=== PATIENT | female | born 1970 | race Caucasian/White ===

== ENCOUNTER 2019-09-05 14:37 | Emergency (ER) | payer SELFPAY ==
[~2019-09-05] VITALS: Ht 160 cm; Wt 105.0 kg
[~2019-09-05 14:37] MED LIST: ALBU17AE3 IH; AMIT150T3 PO; AMIT25TA9 PO; AMIT50TA3 PO; AMLO10TA82 PO; AMOX500C2 PO; ARIP15TA PO; B12 SC; BPR75T PO; CIPR500T78 PO; CLON0.5T2 PO; CLON0.5T3 PO; CLON1PAT TD; CYAN100053 IJ; CYCL10TA9 PO; D50KC PO; DESV100T PO; DEXL60CA5 PO; DICL75TA2; DICY20TA57 PO; DIVA500T7 PO; ERGO400C PO; ESCI20TA2; ESCI20TA38 PO; ESCT10T PO; ESZO1TAB2 PO; ESZO3TAB3 PO; FLT11013 IH; FLUO20CA25 PO; FLVX50T PO; FLX10C; GBPN100C; HYDR-1231 PO; HYDR-34 PO; HYDR1TAB PO; HYDR1TAB3 PO; HYDR50TA76 PO; ILOP6TAB PO; INDM25C PO; INDO25CA PO; LEVO500T69 PO; LISI1TAB10 PO; LISI20TA PO; LORA10TA7 PO; MECL-124 PO; MESA400C PO; METO-272 PO; METO100T5 PO; METO200T2 PO; METO5TAB79 PO; METR500T PO; MIRT15TA6 PO; Meclizine Hcl PO; NITR-65 PO; NITR100C3 PO; NITR50CA PO; OMEP20CA12 PO; OXYC-199 PO; OXYC5SOL PO; PENI500T PO; PNT40TEC PO; PRED20TA PO; PRISTIQ PO; PRM25T PO; QTP25T PO; RIZA10TA24 PO; SCP1.5TD TOP; SCR1T1 PO; SIMV10TA3 PO; SMTR50T PO; SUMA50TA2 PO; TOPI200T19 PO; TOPI200T2 PO; TPR100T; TPR100T PO; TRAM-21 PO; TRAM50TA2 PO; TRM50T PO; VORT10TA PO; ZALE10CA PO; ZLP10T
[2019-09-05 15:26] LABS: BASOPHILS % (AUTO) 0 % (0-10); EOSINOPHILS # (AUTO) 0.1 10^3/uL (0.0-0.3); EOSINOPHILS % (AUTO) 2 % (0-10); HEMATOCRIT 41 % (35-52); HEMOGLOBIN 12.9 G/DL (11.5-16.0); LYMPHOCYTES # (AUTO) 1.6 X 10^3 (1.0-4.0); LYMPHOCYTES % (AUTO) 20 % (12-44); MEAN CORPUSCULAR HEMOGLOBIN 26 PG (25-34); MEAN CORPUSCULAR HGB CONC 32 G/DL (32-36); MEAN CORPUSCULAR VOLUME 82 FL (80-99); MEAN PLATELET VOLUME 11.2 FL (7.4-10.4); MONOCYTES # (AUTO) 0.7 X 10^3 (0.0-1.0); MONOCYTES % (AUTO) 8 % (0-12); NEUTROPHILS # (AUTO) 5.8 X 10^3 (1.8-7.8); NEUTROPHILS % (AUTO) 70 % (42-75); PLATELET COUNT 283 10^3/uL (130-400); RED CELL DISTRIBUTION WIDTH 14.2 % (10.0-14.5); WHITE BLOOD COUNT 8.3 10^3/uL (4.3-11.0)
[2019-09-05 15:30] LABS: PROTHROMBIN TIME PATIENT 13.7 SEC (12.2-14.7)
[2019-09-05] MEDS ORDERED: cloNIDine 0.2 MG (CATAPRES) TAB PO ONE (15:30)
[2019-09-05 15:39] LABS: ALANINE AMINOTRANSFERASE 14 U/L (0-55); ALBUMIN 4.1 GM/DL (3.2-4.5); ALKALINE PHOSPHATASE 57 U/L (40-136); BILIRUBIN,TOTAL 0.4 MG/DL (0.1-1.0); BUN/CREATININE RATIO 13; CALCIUM 9.1 MG/DL (8.5-10.1); CARBON DIOXIDE 20 MMOL/L (21-32); CHLORIDE 107 MMOL/L (98-107); CREATININE SERUM 0.79 MG/DL (0.60-1.30); GFR ESTIMATED > 60; GLUCOSE 119 MG/DL (70-105); MAGNESIUM 1.9 MG/DL (1.6-2.4); SODIUM 141 MMOL/L (135-145); TOTAL PROTEIN 7.9 GM/DL (6.4-8.2)
[2019-09-05] MEDS ORDERED: morphine INJ 10 MG/ML 1ML (SYR OR VIAL) IVP STA (15:45)
--- NOTE | 2019-09-05 15:47 | Diagnostic Imaging Report ---
EXAMINATION: Chest (PA and lateral). CLINICAL INDICATION: 49-year-old female, chest pain, shortness of breath. Productive cough. COMPARISON: May 19, 2014. FINDINGS: Stable overall appearance of the cardiomediastinal silhouette. There is no identified pneumothorax. There is no pleural effusion. There is no identified focal airspace consolidation. IMPRESSION: No identified acute cardiopulmonary abnormality. Dictated by: Dictated on workstation # [id number]
--- NOTE | 2019-09-05 15:51 | ED Cardiac General ---
History of Present Illness General Chief Complaint: Respiratory Problems Stated Complaint: SOA / CHEST PAIN Nursing Triage Note: PT TO ED FROM [facility] FOR C/O SOB ET CP ONSET YESTERDAY, WORSE TODAY. ALSO C/O ELEVATED BP. History of Present Illness Date Seen by Provider: Sep 05, 2019 Time Seen by Provider: 14:45 Initial Comments 49-year-old female presents for sternal chest pain that has been present for approximately 24 hours. She reports her symptoms are worse. 4 yesterday. She's also been having shortness of air, no cough. She was seen at [facility] earlier today, given ASA 324 mg and referred here. He is on 3 different blood pressure medications and a diuretic but takes them all at 1700 daily. She is compliant in taking them daily. Timing/Duration: 24 hours, getting worse Severity: moderate Location: substernal Prior CP/Workup: no prior chest pain NTG SL PROFESSOR OF JOURNALISM: No ASA po PROFESSOR OF JOURNALISM: Yes Associated Systoms: Chest Pain; No Cough, No Diaphoresis, No Fever/Chills, No Headaches, No Loss of Appetite, No Malaise, No Nausea/Vomiting, No Rash, No Seizure; Shortness of Air; No Syncope, No Weakness Allergies and Home Medications Allergies Coded Allergies: No Known Drug Allergies (Verified , 09/02/07) Home Medications Amitriptyline Hcl 25 Mg Tab, 25 MG PO HS, (Reported) Amlodipine Besylate 10 Mg Tablet, 10 MG PO DAILY, (Reported) Clonidine 1 Each Patch.tdwk, 1 PATCH TD WEEKLY ON SATURDAY, (Reported) Cyanocobalamin 1,000 Mcg/Ml Vial, 1,000 MCG IJ MONTHLY ON THE , (Reported) Cyclobenzaprine Hcl 10 Mg Tablet, 1 EACH PO Q8H PRN for SPASMS Prescribed by: ADY STERLING on 02/13/15 1631 Divalproex Sodium 500 Mg Tablet.dr, 1,000 MG PO HS, (Reported) Hctz/Lisinopril 1 Tab Tablet, 1 TAB PO DAILY, (Reported) Hydroxyzine Hcl 50 Mg Tablet, 50 MG PO TID, (Reported) Mesalamine 400 Mg Capsule.dr, 800 MG PO TID, (Reported) Pantoprazole Sodium 40 Mg Tablet.dr, 40 MG PO BID, (Reported) Tramadol Hcl 50 Mg Tablet, 50 MG PO Q4H PRN for PAIN Prescribed by: ADY STERLING on 02/13/15 1631 Patient Home Medication List Home Medication List Reviewed: Yes Review of Systems Review of Systems Constitutional: no symptoms reported, see HPI Respiratory: See HPI, Shortness of Air, SOA With Exertion Cardiovascular: See HPI, Chest Pain All Other Systems Reviewed Negative Unless Noted: Yes Past Rtfaiqo-Rfcjtf-Qxfxwf Hx Past Med/Social Hx: Reviewed Nursing Past Med/Soc Hx Patient Social History Alcohol Use: Occasionally Uses Recreational Drug Use: No Smoking Status: Never a Smoker Recent Foreign Travel: No Contact w/Someone Who Travel: No Recent Infectious Disease Expo: No Recent Hopitalizations: Yes (FX BONES,CHILD ,PNEUMONIA) Physical Abuse: No Sexual Abuse: No Mistreated: No Fear: No Immunizations Up To Date Tetanus Booster (TDap): More than 5yrs Date of Pneumonia Vaccine: Nov 21, 2013 Date of Influenza Vaccine: Jul 24, 2013 Seasonal Allergies Seasonal Allergies: Yes Past Medical History Surgeries: Yes (HIATAL HERNIA REPAIR, DENTAL SX, KNEE, ANKLE) Abdominal, Orthopedic, Tonsillectomy, Tubal Ligation Respiratory: Yes COPD Cardiac: Yes Hypertension Neurological: Yes Headaches /Migraines, Multiple Sclerosis 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 Disorders: No 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 Sexually Transmitted Disease: No HIV/AIDS: No UTI-Chronic Gastrointestinal: Yes Colitis, Gastroesophageal Reflux, Crohns Disease Musculoskeletal: Yes (MULTIPLE FX, MS ) Fractures Endocrine: No Diabetes, Non-Insulin dep Cancer: No Psychosocial: Yes Anxiety, Depression Integumentary: No Blood Disorders: No Adverse Reaction/Blood Tranf: No Family Medical History Family history: Cardiovascular disease 03 FATHER GRANDPARENTS Family history: Diabetes mellitus GRANDPARENTS Heart disease 03 FATHER GRANDPARENTS Cancer, CAD Under 55 Years Old, Diabetes, Hypertension, Seizures Physical Exam Vital Signs Vital Signs - First Documented 09/05/19 14:41 Temp 36.6 Pulse 83 Resp 20 B/P (MAP) 189/123 (145) Pulse Ox 96 O2 Delivery Room Air Capillary Refill : Less Than 3 Seconds Height, Weight, BMI Height: 5'3" Weight: 240lbs. 0.0oz. [id number]; 41.00 BMI Method:Stated General Appearance: No Apparent Distress, Mild Distress HEENT: PERRL/EOMI, TMs Normal, Normal ENT Inspection, Pharynx Normal Neck: Full Range of Motion, Normal Inspection, Non Tender, Supple Respiratory: Lungs Clear, Normal Breath Sounds Cardiovascular: Regular Rate, Rhythm, No Edema, No JVD, No Murmur, Normal Peripheral Pulses Gastrointestinal: Normal Bowel Sounds, Non Tender, Soft Extremity: Normal Capillary Refill, Normal Inspection, Normal Range of Motion, No Pedal Edema Neurologic/Psychiatric: Alert, Oriented x3, No Motor/Sensory Deficits, Normal Mood/Affect Skin: Normal Color, Warm/Dry Progress/Results/Core Measures Results/Orders Lab Results Laboratory Tests Test 09/05/19 15:00 Range/Units White Blood Count 8.3 4.3-11.0 10^3/uL Red Blood Count 4.98 4.35-5.85 10^6/uL Hemoglobin 12.9 11.5-16.0 G/DL Hematocrit 41 35-52 % Mean Corpuscular Volume 82 80-99 FL Mean Corpuscular Hemoglobin 26 25-34 PG Mean Corpuscular Hemoglobin Concent 32 32-36 G/DL Red Cell Distribution Width 14.2 10.0-14.5 % Platelet Count 283 130-400 10^3/uL Mean Platelet Volume 11.2 H 7.4-10.4 FL Neutrophils (%) (Auto) 70 42-75 % Lymphocytes (%) (Auto) 20 12-44 % Monocytes (%) (Auto) 8 0-12 % Eosinophils (%) (Auto) 2 0-10 % Basophils (%) (Auto) 0 0-10 % Neutrophils # (Auto) 5.8 1.8-7.8 X 10^3 Lymphocytes # (Auto) 1.6 1.0-4.0 X 10^3 Monocytes # (Auto) 0.7 0.0-1.0 X 10^3 Eosinophils # (Auto) 0.1 0.0-0.3 10^3/uL Basophils # (Auto) 0.0 0.0-0.1 10^3/uL Prothrombin Time 13.7 12.2-14.7 SEC INR Comment 1.0 0.8-1.4 Activated Partial Thromboplast Time 28 24-35 SEC D-Dimer 0.32 0.00-0.49 UG/ML Sodium Level 141 135-145 MMOL/L Potassium Level 4.0 3.6-5.0 MMOL/L Chloride Level 107 98-107 MMOL/L Carbon Dioxide Level 20 L 21-32 MMOL/L Anion Gap 14 5-14 MMOL/L Blood Urea Nitrogen 10 7-18 MG/DL Creatinine 0.79 0.60-1.30 MG/DL Estimat Glomerular Filtration Rate > 60 BUN/Creatinine Ratio 13 Glucose Level 119 H 70-105 MG/DL Calcium Level 9.1 8.5-10.1 MG/DL Corrected Calcium 9.0 8.5-10.1 MG/DL Magnesium Level 1.9 1.6-2.4 MG/DL Total Bilirubin 0.4 0.1-1.0 MG/DL Aspartate Amino Transf (AST/SGOT) 16 5-34 U/L Alanine Aminotransferase (ALT/SGPT) 14 0-55 U/L Alkaline Phosphatase 57 40-136 U/L Myoglobin 21.5 10.0-92.0 NG/ML Troponin I < 0.028 <0.028 NG/ML B-Type Natriuretic Peptide 38.3 <100.0 PG/ML Total Protein 7.9 6.4-8.2 GM/DL Albumin 4.1 3.2-4.5 GM/DL TSH [place] Testing 0.83 0.35-4.94 UIU/ML My Orders Orders - AMIE LUCERO GEOLOGICAL ENGINEER Cbc With Automated Diff (09/05/19 15:19) Magnesium (09/05/19 15:19) Ekg Tracing (09/05/19 15:19) Comprehensive Metabolic Panel (09/05/19 15:19) Myoglobin Serum (09/05/19 15:19) Protime With Inr (09/05/19 15:19) Partial Thromboplastin Time (09/05/19 15:19) O2 (09/05/19 15:19) Monitor-Rhythm Ecg Trace Only (09/05/19 15:19) Ed Iv/Invasive Line Start (09/05/19 15:19) BNP (09/05/19 15:19) Chest Pa/Lat (2 View) (09/05/19 15:19) Clonidine Tablet (Catapres Tablet) (09/05/19 15:30) Troponin I (09/05/19 15:00) Fibrin Degradation Products (09/05/19 15:24) Morphine Injection (Morphine Injection (09/05/19 15:45) Thyroid Analyzer (09/05/19 16:25) Hydralazine Injection (Apresoline Inject (09/05/19 16:45) Medications Given in ED Current Medications Medications Dose Ordered Sig/Laz Route Start Time Stop Time Status Last Admin Dose Admin Clonidine HCl 0.2 mg ONCE ONCE PO 09/05/19 15:30 09/05/19 15:31 DC 09/05/19 15:42 0.2 MG Hydralazine HCl 10 mg ONCE ONCE IV 09/05/19 16:45 09/05/19 16:47 DC 09/05/19 16:50 10 MG Vital Signs/I&O 09/05/19 09/05/19 14:41 17:32 Temp 36.6 Pulse 83 71 Resp 20 24 B/P (MAP) 189/123 (145) 184/91 Pulse Ox 96 96 O2 Delivery Room Air Room Air Blood Pressure Mean: 145 POS Progress Progress Note : Time: 14:45 Progress Note Patient seen and evaluated, will obtain EKG, chest x-ray, and labs. Morphine 2 mg IV for pain and clonidine 0.2 mg for hypertension 189/123. 1530 Blood pressure improved to 160/90. Patient reports some improvement in her pain. SaO2 on room air continues to be 92-94%, oxygen 1 L per nasal cannula applied. SaO2 98% after 1-2 minutes. 1545 Labs all normal, patient reports to be feeling better with O2 on. 1615 B/P 180s/110, will give Hydralazine 10 mg IV. 1640 B/P 150/84. Discontinued O2, will monitor. 1715 Patient reports no further pain or dyspnea. Discharge instructions and return precautions reviewed with the patient. All questions answered. Initial ECG Impression Date: Sep 05, 2019 Initial ECG Impression Time: 15:12 Initial ECG Rate: 68 Initial ECG Rhythm: Normal Sinus Initial ECG Intervals: Normal Initial ECG Intervals GA 148, QRSD 72, QTC 400, QTC 426. Stephenson P 15, QRS 3, T 43. Initial ECG Impression: Normal Initial ECG Comparisson: Unchanged Comment Reviewed with Dr. Weiss, concurred with interpretation. Diagnostic Imaging Diagonstic Imaging: Xray Plain Films/CT/US/NM/MRI: chest Comments NAME: APOLONIA [facility] REC#: [id number] PT STATUS: REG ER : 1970 PHYSICIAN: AMIE LUCERO ADMIT DATE: 09/05/19/ER Draft POSDate of Exam:09/05/19 CHEST PA/LAT (2 VIEW) EXAMINATION: Chest (PA and lateral). CLINICAL INDICATION: 49-year-old female, chest pain, shortness of breath. Productive cough. COMPARISON: May 19, 2014. FINDINGS: Stable overall appearance of the cardiomediastinal silhouette. There is no identified pneumothorax. There is no pleural effusion. There is no identified focal airspace consolidation. IMPRESSION: No identified acute cardiopulmonary abnormality. Dictated on workstation # [id number] Dict: 09/05/19 1536 Trans: 09/05/19 1546 [facility] [id number] Interpreted by: CARA FLORES MD Electronically signed by: Departure Impression Primary Impression: HTN (hypertension) Qualified Codes: I10 - Essential (primary) hypertension Disposition: 01 HOME, SELF-CARE Condition: Improved Departure-Patient Inst. Decision time for Depature: 17:15 Referrals: [facility] [place]) Primary Care Physician Patient Instructions: High Blood Pressure (DC) Add. Discharge Instructions: Continue to take your medication as prescribed, start taking her lisinopril/hy drochlorothiazide in the morning. Follow-up with your primary care provider if symptoms are not improving or worsen. Return to the emergency department for new, urgent health care problems. All discharge instructions reviewed with patient and/or family. Voiced understanding. AMIE LUCERO Sep 05, 2019 15:51 POS
[2019-09-05] MEDS ORDERED: hydrALAZINE (APESOLINE) 20 MG/ML VIAL IV ONE (16:45)
[2019-09-05 17:32] VITALS: BP 184/91
== END 2019-09-05 17:36 | disposition home or self-care (01) ==
LOC: EDUNIT# 14:37 → ER 14:38
DX: I10 Essential (primary) hypertension (principal); E11.9 Type 2 diabetes mellitus without complications; J44.9 Chronic obstructive pulmonary disease, unspecified; G43.909 Migraine, unspecified, not intractable, without status migrainosus; G35 Multiple sclerosis; F41.9 Anxiety disorder, unspecified; F32.9 Major depressive disorder, single episode, unspecified; K21.9 Gastro-esophageal reflux disease without esophagitis; Z87.440 Personal history of urinary (tract) infections; Z90.89 Acquired absence of other organs; Z98.51 Tubal ligation status; Z82.49 Family history of ischemic heart disease and other diseases of the circulatory system
CPT/HCPCS: 36415; 71046; 80053; 83735; 83874; 83880; 84443; 84484; 85025; 85379; 85610; 85730; 93005; 96374; 96375

== ENCOUNTER 2019-09-17 13:37 | Emergency (ER) | payer SELFPAY ==
[~2019-09-17] VITALS: Ht 160 cm; Wt 106.8 kg
[2019-09-17] MEDS ORDERED: CARV6.252 PO (14:09)
[2019-09-17] MEDS ORDERED: SERT50TA9 PO (14:10)
[2019-09-17] MEDS ORDERED: cloNIDine 0.1 MG (CATAPRES) TAB PO ONE (14:30)
--- NOTE | 2019-09-17 14:31 | ED Cardiac General ---
History of Present Illness General Chief Complaint: Cardiac/General Problems Stated Complaint: HIGH BLOOD PRESSURE Nursing Triage Note: STATES HER BP HAS BEEN GETTING HIGH THE LAST COUPLE OF WEEKS. HAS BEEN SEEN IN THE ER RECENTLY FOR THIS. COMPLAINS OF A HEADACHE AND NAUSEA. STATES SHE HAS BEEN TAKING HER MEDS LIKE SHE SHOULD. Source: patient Exam Limitations: no limitations History of Present Illness Date Seen by Provider: Sep 17, 2019 Time Seen by Provider: 14:29 Initial Comments Brought to ER by her mother with reports of high blood pressure. She states that she has dealt with high blood pressure since she was 22 years old. She is on 3 medicines for them, one of them is lisinopril but she doesn't know the dosage and she doesn't know the name of the other 2. She has some back pain in her lower back that is chronic but a bit worse today and radiates up her back. She does have a headache and some nausea. She has not missed any doses of blood pressure medication Timing/Duration: changing over time Severity: moderate Activities at Onset: none Prior CP/Workup: no prior chest pain NTG SL ANALYTICS ANALYST: No ASA po ANALYTICS ANALYST: No Associated Systoms: No Chest Pain; Headaches, Nausea/Vomiting Allergies and Home Medications Allergies Coded Allergies: No Known Drug Allergies (Verified , 09/02/07) Home Medications Amlodipine Besylate 10 Mg Tablet, 10 MG PO DAILY, (Reported) Carvedilol 6.25 Mg Tablet, 6.25 MG PO BID, (Reported) Clonidine HCl 0.2 Mg Tablet, 0.2 MG PO BID Prescribed by: TRUDI AGUILAR on 09/17/19 1529 Hctz/Lisinopril 1 Tab Tablet, 1 TAB PO DAILY, (Reported) Hydroxyzine Hcl 50 Mg Tablet, 50 MG PO TID, (Reported) Patient Home Medication List Home Medication List Reviewed: Yes Review of Systems Review of Systems Constitutional: see HPI EENTM: No Symptoms Reported Respiratory: No Symptoms Reported Cardiovascular: See HPI; Denies Chest Pain, Denies Edema, Denies Irregular Heart Rate, Denies Lightheadedness, Denies Palpitations Gastrointestinal: No Symptoms Reported Genitourinary: No Symptoms Reported Musculoskeletal: no symptoms reported Skin: no symptoms reported Psychiatric/Neurological: See HPI, Headache Endocrine: No Symptoms Reported Hematologic/Lymphatic: No Symptoms Reported Past Fjluncb-Eireqy-Uvncvq Hx Patient Social History Alcohol Use: Occasionally Uses Recreational Drug Use: No Smoking Status: Former Smoker Recent Foreign Travel: No Contact w/Someone Who Travel: No Recent Infectious Disease Expo: No Recent Hopitalizations: Yes (FX BONES,CHILD ,PNEUMONIA) Immunizations Up To Date Tetanus Booster (TDap): More than 5yrs Date of Pneumonia Vaccine: Nov 21, 2013 Date of Influenza Vaccine: Jul 24, 2013 Seasonal Allergies Seasonal Allergies: Yes Past Medical History Surgeries: Yes (HIATAL HERNIA REPAIR, DENTAL SX, KNEE, ANKLE) Abdominal, Orthopedic, Tonsillectomy, Tubal Ligation Respiratory: Yes COPD Cardiac: Yes Hypertension Neurological: Yes Headaches /Migraines, Multiple Sclerosis : No Last Menstrual Period: Aug 23, 2019 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 Disorders: No 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 Sexually Transmitted Disease: No HIV/AIDS: No UTI-Chronic Gastrointestinal: Yes Colitis, Gastroesophageal Reflux, Crohns Disease Musculoskeletal: Yes (MULTIPLE FX, MS ) Fractures Endocrine: No Diabetes, Non-Insulin dep Cancer: No Psychosocial: Yes Anxiety, Depression Integumentary: No Blood Disorders: No Adverse Reaction/Blood Tranf: No Family Medical History Family history: Cardiovascular disease 03 FATHER GRANDPARENTS Family history: Diabetes mellitus GRANDPARENTS Heart disease 03 FATHER GRANDPARENTS Cancer, CAD Under 55 Years Old, Diabetes, Hypertension, Seizures Physical Exam Vital Signs Vital Signs - First Documented 09/17/19 14:04 Temp 36.7 Pulse 75 Resp 16 B/P (MAP) 222/124 (156) Pulse Ox 99 O2 Delivery Room Air Capillary Refill : Less Than 3 Seconds Height, Weight, BMI Height: 5'3" Weight: 240lbs. 0.0oz. [id number]; 41.00 BMI Method:Stated General Appearance: No Apparent Distress, WD/WN HEENT: PERRL/EOMI, TMs Normal Neck: Full Range of Motion, Normal Inspection Respiratory: Lungs Clear, Normal Breath Sounds, No Accessory Muscle Use, No Respiratory Distress Cardiovascular: Regular Rate, Rhythm, Normal Peripheral Pulses Gastrointestinal: Normal Bowel Sounds, Non Tender, Soft Extremity: Normal Capillary Refill, Normal Inspection Neurologic/Psychiatric: Alert, Oriented x3 Skin: Normal Color, Warm/Dry Progress/Results/Core Measures Results/Orders Lab Results Laboratory Tests Test 09/17/19 14:20 Range/Units White Blood Count 7.9 4.3-11.0 10^3/uL Red Blood Count 5.02 4.35-5.85 10^6/uL Hemoglobin 13.1 11.5-16.0 G/DL Hematocrit 41 35-52 % Mean Corpuscular Volume 82 80-99 FL Mean Corpuscular Hemoglobin 26 25-34 PG Mean Corpuscular Hemoglobin Concent 32 32-36 G/DL Red Cell Distribution Width 14.2 10.0-14.5 % Platelet Count 248 130-400 10^3/uL Mean Platelet Volume 10.7 H 7.4-10.4 FL Neutrophils (%) (Auto) 68 42-75 % Lymphocytes (%) (Auto) 21 12-44 % Monocytes (%) (Auto) 9 0-12 % Eosinophils (%) (Auto) 1 0-10 % Basophils (%) (Auto) 0 0-10 % Neutrophils # (Auto) 5.4 1.8-7.8 X 10^3 Lymphocytes # (Auto) 1.6 1.0-4.0 X 10^3 Monocytes # (Auto) 0.7 0.0-1.0 X 10^3 Eosinophils # (Auto) 0.1 0.0-0.3 10^3/uL Basophils # (Auto) 0.0 0.0-0.1 10^3/uL Sodium Level 140 135-145 MMOL/L Potassium Level 4.1 3.6-5.0 MMOL/L Chloride Level 104 98-107 MMOL/L Carbon Dioxide Level 26 21-32 MMOL/L Anion Gap 10 5-14 MMOL/L Blood Urea Nitrogen 12 7-18 MG/DL Creatinine 0.77 0.60-1.30 MG/DL Estimat Glomerular Filtration Rate > 60 BUN/Creatinine Ratio 16 Glucose Level 97 70-105 MG/DL Calcium Level 9.9 8.5-10.1 MG/DL Corrected Calcium 9.7 8.5-10.1 MG/DL Total Bilirubin 0.3 0.1-1.0 MG/DL Aspartate Amino Transf (AST/SGOT) 14 5-34 U/L Alanine Aminotransferase (ALT/SGPT) 14 0-55 U/L Alkaline Phosphatase 57 40-136 U/L Troponin I < 0.028 <0.028 NG/ML Total Protein 8.1 6.4-8.2 GM/DL Albumin 4.2 3.2-4.5 GM/DL Thyroid Stimulating Hormone (TSH) 1.05 0.35-4.94 UIU/ML Free Thyroxine 1.04 0.70-1.48 NG/DL Serum Test, Qualitative NEGATIVE NEGATIVE My Orders Orders - TRUDI AGUILAR APRN Cbc With Automated Diff (09/17/19 14:23) Comprehensive Metabolic Panel (09/17/19 14:23) Troponin I (09/17/19 14:23) Clonidine Tablet (Catapres Tablet) (09/17/19 14:30) Chest 1 View, Ap/Pa Only (09/17/19 14:27) Aorta Sono [id number] (09/17/19 14:27) Thyroid Stimulating Hormone (09/17/19 14:28) Free T4 (Free Thyroxine) (09/17/19 14:28) Hcg,Qualitative Serum (09/17/19 14:28) Ct Angio Abdomen/Pelv W (09/17/19 15:36) Ketorolac Injection (Toradol Injection) (09/17/19 15:45) Prochlorperazine Injection (Compazine In (09/17/19 15:45) Diphenhydramine Injection (Benadryl Inje (09/17/19 15:45) Iohexol Injection (Omnipaque 350 Mg/Ml 1 (09/17/19 16:15) Received Contrast (Hold Metformin- Contr (09/17/19 16:15) Ns (Ivpb) (Sodium Chloride 0.9% Ivpb Bag (09/17/19 16:15) Sodium Chloride Flush (Catheter Flush Sy (09/17/19 16:15) Hydralazine Tablet (Apresoline Tablet) (09/17/19 16:30) Medications Given in ED Current Medications Medications Dose Ordered Sig/Laz Route Start Time Stop Time Status Last Admin Dose Admin Clonidine HCl 0.2 mg ONCE ONCE PO 09/17/19 14:30 09/17/19 14:31 DC 09/17/19 14:31 0.2 MG Iohexol 100 ml ONCE ONCE IV 09/17/19 16:15 09/17/19 16:16 DC 09/17/19 16:11 85 ML Sodium Chloride 10 ml NEEDED PRN IV 09/17/19 16:15 09/17/19 16:11 10 ML Sodium Chloride 100 ml ONCE ONCE IV 09/17/19 16:15 09/17/19 16:16 DC 09/17/19 16:11 80 ML Vital Signs/I&O 09/17/19 14:04 Temp 36.7 Pulse 75 Resp 16 B/P (MAP) 222/124 (156) Pulse Ox 99 O2 Delivery Room Air Blood Pressure Mean: 156 Departure Impression Primary Impression: Hypertensive urgency Disposition: 01 HOME, SELF-CARE Condition: Improved Departure-Patient Inst. Decision time for Depature: 15:28 Referrals: [facility] (PCP/Family) Primary Care Physician Patient Instructions: High Blood Pressure in Adults Add. Discharge Instructions: 1. Add new blood pressure medication to your regimen. Take one tablet every 12 h ours as needed IF systolic blood pressure (top number) is over 160. 2. Call your doctor today or tomorrow to make an appointment to be seen no later than next week, it is very important that you follow up on this. All discharge instructions reviewed with patient and/or family. Voiced understanding. Scripts Clonidine HCl (Clonidine HCl) 0.2 Mg Tablet 0.2 MG PO BID, #20 TAB Prov: TRUDI AGUILAR APRN 09/17/19 Copy Copies To 1: HERNAN ANGELES PETER J APRN Sep 17, 2019 14:31
[2019-09-17 14:32] LABS: BASOPHILS % (AUTO) 0 % (0-10); EOSINOPHILS # (AUTO) 0.1 10^3/uL (0.0-0.3); EOSINOPHILS % (AUTO) 1 % (0-10); HEMATOCRIT 41 % (35-52); HEMOGLOBIN 13.1 G/DL (11.5-16.0); LYMPHOCYTES # (AUTO) 1.6 X 10^3 (1.0-4.0); LYMPHOCYTES % (AUTO) 21 % (12-44); MEAN CORPUSCULAR HEMOGLOBIN 26 PG (25-34); MEAN CORPUSCULAR HGB CONC 32 G/DL (32-36); MEAN CORPUSCULAR VOLUME 82 FL (80-99); MEAN PLATELET VOLUME 10.7 FL (7.4-10.4); MONOCYTES # (AUTO) 0.7 X 10^3 (0.0-1.0); MONOCYTES % (AUTO) 9 % (0-12); NEUTROPHILS # (AUTO) 5.4 X 10^3 (1.8-7.8); NEUTROPHILS % (AUTO) 68 % (42-75); PLATELET COUNT 248 10^3/uL (130-400); RED CELL DISTRIBUTION WIDTH 14.2 % (10.0-14.5); WHITE BLOOD COUNT 7.9 10^3/uL (4.3-11.0)
--- NOTE | 2019-09-17 14:49 | Diagnostic Imaging Report ---
INDICATION: High blood pressure. TIME OF EXAM: 02:40 p.m. COMPARISON: Comparison is made with prior chest from 09/05/2019. FINDINGS: The heart size is normal. The pulmonary vascularity is unremarkable. The lungs are clear. No infiltrate, effusion or pneumothorax is detected. IMPRESSION: No acute cardiopulmonary process is detected. Dictated by: Dictated on workstation # [id number]
[2019-09-17 14:50] LABS: CARBON DIOXIDE 26 MMOL/L (21-32); CHLORIDE 104 MMOL/L (98-107); CREATININE SERUM 0.77 MG/DL (0.60-1.30); POTASSIUM 4.1 MMOL/L (3.6-5.0); SODIUM 140 MMOL/L (135-145)
[2019-09-17 14:51] LABS: ALANINE AMINOTRANSFERASE 14 U/L (0-55); ALBUMIN 4.2 GM/DL (3.2-4.5); ALKALINE PHOSPHATASE 57 U/L (40-136); BILIRUBIN,TOTAL 0.3 MG/DL (0.1-1.0); BUN/CREATININE RATIO 16; CALCIUM 9.9 MG/DL (8.5-10.1); GFR ESTIMATED > 60; GLUCOSE 97 MG/DL (70-105); TOTAL PROTEIN 8.1 GM/DL (6.4-8.2)
[2019-09-17] MEDS ORDERED: CLON0.2T PO (15:29)
[2019-09-17 15:33] LABS: FREE T4 (FREE THYROXINE) 1.04 NG/DL (0.70-1.48)
[2019-09-17] MEDS ORDERED: KETOROLAC 30 MG/ML VIAL IVP ONE (15:45)
[2019-09-17] MEDS ORDERED: diphenhydrAMINE 50 MG/ML INJ (BENADRYL) IVP ONE (15:45)
[2019-09-17] MEDS ORDERED: PROCHLORPERAZINE 10 MG/2ML INJ (COMPAZINE) IV ONE (15:45)
--- NOTE | 2019-09-17 15:55 | Diagnostic Imaging Report ---
INDICATION: Elevated blood pressure and back pain. FINDINGS: The proximal aorta measures 2.1 cm AP by 2.2 cm transverse. Mid aorta is 1.6 cm AP by 1.8 cm transverse. The distal abdominal aorta as well as the iliacs could not be visualized due to bowel gas. No free fluid is seen. IMPRESSION: No evidence of aneurysm involving the proximal or mid abdominal aorta. Dictated by: Dictated on workstation # [id number]
[2019-09-17] MEDS ORDERED: HOLD METFORMIN - RECEIVED CONTRAST 20 ML VIAL IV SCH (16:15)
[2019-09-17] MEDS ORDERED: NS 100 ML (IVPB) BAG IV ONE (16:15)
[2019-09-17] MEDS ORDERED: IOHEXOL 350 MG/ML 100 ML (OMNIPAQUE 350) VIAL IV ONE (16:15)
[2019-09-17] MEDS ORDERED: CATHETER FLUSH 10 ML SYR IV PRN (16:15)
--- NOTE | 2019-09-17 16:22 | Diagnostic Imaging Report ---
EXAMINATION: CT angiography of the abdomen and pelvis. TECHNIQUE: After intravenous administration of contrast, thin section axial CT angiography of the abdomen and pelvis were obtained. 3D MIP reformats were provided. All CT scans use one or more of the following dose optimizing techniques: automated exposure control, MA and/or KvP adjustment based on a patient size and exam type, or iterative reconstruction. HISTORY: Elevated blood pressure and back pain. COMPARISON: 12/09/2014. FINDINGS: The abdominal aorta is normal in caliber without aneurysm or dissection. No penetrating atherosclerotic ulcer. Celiac artery and superior mesenteric arteries are patent. Inferior mesenteric artery is normal. Renal artery origins are normal without stenosis. Limited views of the lower thorax are unremarkable. The liver is normal without focal lesion. There is no biliary ductal dilation. Gallbladder is normal. Pancreas is normal. Spleen is normal. Adrenal glands are normal. The kidneys are normal. There is no hydronephrosis. Urinary bladder is normal. There are no dilated loops of large or small bowel. No obstruction or inflammation. No free fluid or air. No abdominal or pelvic lymphadenopathy. There are no suspicious osseous lesions. IMPRESSION: 1. No acute abnormality in the abdomen or pelvis, normal vasculature. Dictated by: Dictated on workstation # [id number]
[2019-09-17 17:06] VITALS: BP 165/91
== END 2019-09-17 17:11 | disposition home or self-care (01) ==
LOC: EDUNIT# 13:37 → ER 13:38
DX: I16.0 Hypertensive urgency (principal); J44.9 Chronic obstructive pulmonary disease, unspecified; I10 Essential (primary) hypertension; E11.9 Type 2 diabetes mellitus without complications; G43.909 Migraine, unspecified, not intractable, without status migrainosus; G35 Multiple sclerosis; K21.9 Gastro-esophageal reflux disease without esophagitis; K50.90 Crohn's disease, unspecified, without complications; F41.9 Anxiety disorder, unspecified; F32.9 Major depressive disorder, single episode, unspecified; Z87.891 Personal history of nicotine dependence; Z98.51 Tubal ligation status; Z90.89 Acquired absence of other organs; Z87.440 Personal history of urinary (tract) infections; Z82.49 Family history of ischemic heart disease and other diseases of the circulatory system
CPT/HCPCS: 36415; 71045; 74174; 76775; 80053; 84439; 84443; 84484; 84703; 85025; 93005; 96374; 96375

== ENCOUNTER 2020-05-29 16:01 | Emergency (ER) | payer SELFPAY ==
[~2020-05-29] VITALS: Ht 160 cm; Wt 111.0 kg
[~2020-05-29 16:01] MED LIST changes: +CARV6.252 PO; +CLON0.2T PO; +SERT50TA9 PO
[2020-05-29] MEDS ORDERED: LACTATED RINGERS 1,000 ML IV ONE (16:46)
[2020-05-29] MEDS ORDERED: ONDANSETRON 4 MG/2 ML (SDV) Z0FRAN ONE (16:50)
[2020-05-29 16:53] LABS: BASOPHILS % (AUTO) 0 % (0-10); EOSINOPHILS % (AUTO) 0 % (0-10); HEMATOCRIT 40 % (35-52); HEMOGLOBIN 12.7 G/DL (11.5-16.0); LYMPHOCYTES # (AUTO) 0.5 X 10^3 (1.0-4.0); LYMPHOCYTES % (AUTO) 7 % (12-44); MEAN CORPUSCULAR HEMOGLOBIN 25 PG (25-34); MEAN CORPUSCULAR HGB CONC 32 G/DL (32-36); MEAN CORPUSCULAR VOLUME 79 FL (80-99); MEAN PLATELET VOLUME 11.2 FL (7.4-10.4); MONOCYTES # (AUTO) 0.7 X 10^3 (0.0-1.0); MONOCYTES % (AUTO) 9 % (0-12); NEUTROPHILS # (AUTO) 6.2 X 10^3 (1.8-7.8); NEUTROPHILS % (AUTO) 83 % (42-75); PLATELET COUNT 200 10^3/uL (130-400); WHITE BLOOD COUNT 7.4 10^3/uL (4.3-11.0)
--- NOTE | 2020-05-29 16:57 | ED Respiratory ---
General Chief Complaint: Fever-Adult/Adol Stated Complaint: HIGH BP 200/100 - SOA Nursing Triage Note: ARRIV[facility] AMB [facility] PT COMPLAINS OF HYPERTENSION, SOA, AND FEVER. Source: patient Exam Limitations: no limitations History of Present Illness Date Seen by Provider: May 29, 2020 Time Seen by Provider: 16:40 Initial Comments The patient arrives to the ER by private conveyance from home with chief complaint of 4 days of shortness of breath, upper chest pain on deep inspiration, cough and now fever today. She has been using occasional Tylenol and ibuprofen for body aches. She has no known sick contacts. She has no diarrhea dysuria but she does have some nausea without vomiting. No history of lung disease. She says her chest pain is the same as it usually is. 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 No history of coronary disease. Allergies and Home Medications Allergies Coded Allergies: No Known Drug Allergies (Verified , 09/02/07) Home Medications Amlodipine Besylate 10 Mg Tablet, 10 MG PO DAILY, (Reported) Carvedilol 6.25 Mg Tablet, 6.25 MG PO BID, (Reported) Clonidine HCl 0.2 Mg Tablet, 0.2 MG PO BID Prescribed by: TRUDI AGUILAR on 09/17/19 1529 Hctz/Lisinopril 1 Tab Tablet, 1 TAB PO DAILY, (Reported) Hydroxyzine Hcl 50 Mg Tablet, 50 MG PO TID, (Reported) Patient Home Medication List Home Medication List Reviewed: Yes Review of Systems Review of Systems Constitutional: chills, fever, malaise EENTM: No ear discharge, No ear pain Respiratory: cough; No phlegm; short of breath Cardiovascular: see HPI, chest pain; No edema, No Hx of Intervention, No palpitations, No syncope, No vascular heart diseas Gastrointestinal: No abdominal pain, No constipation Genitourinary: No discharge, No dysuria : No Musculoskeletal: No back pain, No joint pain All Other Systems Reviewed Negative Unless Noted: Yes Past Rarmpxl-Uwyjej-Pplwpu Hx Patient Social History Alcohol Use: Denies Use Recreational Drug Use: No Smoking Status: Never a Smoker Recent Foreign Travel: No Contact w/Someone Who Travel: No Recent Infectious Disease Expo: No Recent Hopitalizations: Yes (FX BONES,CHILD ,PNEUMONIA) Immunizations Up To Date Tetanus Booster (TDap): More than 5yrs Date of Pneumonia Vaccine: Nov 21, 2013 Date of Influenza Vaccine: Jul 24, 2013 Seasonal Allergies Seasonal Allergies: Yes Past Medical History Surgeries: Yes (HIATAL HERNIA REPAIR, DENTAL SX, KNEE, ANKLE) Abdominal, Orthopedic, Tonsillectomy, Tubal Ligation Respiratory: Yes COPD Cardiac: Yes Hypertension Neurological: Yes Headaches /Migraines, Multiple Sclerosis : No 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 Disorders: No Female 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 Sexually Transmitted Disease: No HIV/AIDS: No UTI-Chronic Gastrointestinal: Yes Colitis, Gastroesophageal Reflux, Crohns Disease Musculoskeletal: Yes (MULTIPLE FX, MS ) Fractures Endocrine: No Diabetes, Non-Insulin dep Cancer: No Psychosocial: Yes Anxiety, Depression Integumentary: No Blood Disorders: No Adverse Reaction/Blood Tranf: No Family Medical History Family history: Cardiovascular disease 03 FATHER GRANDPARENTS Family history: Diabetes mellitus GRANDPARENTS Heart disease 03 FATHER GRANDPARENTS Cancer, CAD Under 55 Years Old, Diabetes, Hypertension, Seizures Physical Exam Vital Signs - First Documented 05/29/20 16:20 Temp 39.1 Pulse 109 Resp 16 B/P (MAP) 179/102 (127) Pulse Ox 94 O2 Delivery Room Air Capillary Refill : Less Than 3 Seconds Height: 5'3" Weight: 240lbs. 0.0oz. 108.207994yh; 43.00 BMI Method:Stated General Appearance: WD/WN, moderate distress Eyes: Bilateral Eye Normal Inspection, Bilateral Eye PERRL, Bilateral Eye EOMI HEENT: PERRL/EOMI, normal ENT inspection, TMs normal, pharynx normal Neck: non-tender, full range of motion, supple, normal inspection Respiratory: lungs clear, normal breath sounds, no respiratory distress, no accessory muscle use Cardiovascular: normal peripheral pulses, regular rate, rhythm, tachycardia (105) Gastrointestinal: normal bowel sounds, non tender, soft Neurologic/Psychiatric: alert, normal mood/affect, oriented x 3 Skin: normal color, warm/dry Focused Exam Lactate Level 05/29/20 16:30: Lactic Acid Level 0.97 Lactic Acid Level Laboratory Tests Test 05/29/20 16:30 Lactic Acid Level 0.97 MMOL/L (0.50-2.00) Progress/Results/Core Measures Suspected Sepsis Recent Fever Within 48 Hours: Yes Infection Criteria Present: Suspected New Infection New/Unexplained Altered Menta: No Sepsis Screen: Possible Severe Sepsis Risk SIRS Temperature: Pulse: 109 Respiratory Rate: 16 Laboratory Tests 05/29/20 16:30: White Blood Count 7.4 Blood Pressure 179 /102 Mean: 127 05/29/20 16:30: Lactic Acid Level 0.97 Laboratory Tests 05/29/20 16:30: Creatinine 0.88, Platelet Count 200, Total Bilirubin 0.7 05/29/20 16:57: INR Comment 1.2 Results/Orders Lab Results Laboratory Tests Test 05/29/20 16:30 05/29/20 16:40 05/29/20 16:57 Range/Units White Blood Count 7.4 4.3-11.0 10^3/uL Red Blood Count 5.02 4.35-5.85 10^6/uL Hemoglobin 12.7 11.5-16.0 G/DL Hematocrit 40 35-52 % Mean Corpuscular Volume 79 L 80-99 FL Mean Corpuscular Hemoglobin 25 25-34 PG Mean Corpuscular Hemoglobin Concent 32 32-36 G/DL Red Cell Distribution Width 15.2 H 10.0-14.5 % Platelet Count 200 130-400 10^3/uL Mean Platelet Volume 11.2 H 7.4-10.4 FL Neutrophils (%) (Auto) 83 H 42-75 % Lymphocytes (%) (Auto) 7 L 12-44 % Monocytes (%) (Auto) 9 0-12 % Eosinophils (%) (Auto) 0 0-10 % Basophils (%) (Auto) 0 0-10 % Neutrophils # (Auto) 6.2 1.8-7.8 X 10^3 Lymphocytes # (Auto) 0.5 L 1.0-4.0 X 10^3 Monocytes # (Auto) 0.7 0.0-1.0 X 10^3 Eosinophils # (Auto) 0.0 0.0-0.3 10^3/uL Basophils # (Auto) 0.0 0.0-0.1 10^3/uL Neutrophils % (Manual) 79 % Lymphocytes % (Manual) 11 % Monocytes % (Manual) 6 % Band Neutrophils 4 % Anisocytosis SLIGHT Microcytosis SLIGHT Erythrocyte Sedimentation Rate 82 H 0-20 MM/HR Sodium Level 134 L 135-145 MMOL/L Potassium Level 3.7 3.6-5.0 MMOL/L Chloride Level 99 98-107 MMOL/L Carbon Dioxide Level 24 21-32 MMOL/L Anion Gap 11 5-14 MMOL/L Blood Urea Nitrogen 11 7-18 MG/DL Creatinine 0.88 0.60-1.30 MG/DL Estimat Glomerular Filtration Rate > 60 BUN/Creatinine Ratio 13 Glucose Level 131 H 70-105 MG/DL Lactic Acid Level 0.97 0.50-2.00 MMOL/L Calcium Level 9.2 8.5-10.1 MG/DL Corrected Calcium 9.3 8.5-10.1 MG/DL Total Bilirubin 0.7 0.1-1.0 MG/DL Aspartate Amino Transf (AST/SGOT) 23 5-34 U/L Alanine Aminotransferase (ALT/SGPT) 20 0-55 U/L Alkaline Phosphatase 64 40-136 U/L Troponin I < 0.028 <0.028 NG/ML C-Reactive Protein High Sensitivity 33.93 H 0.00-0.50 MG/DL Total Protein 8.5 H 6.4-8.2 GM/DL Albumin 3.9 3.2-4.5 GM/DL Procalcitonin 0.79 H <0.10 NG/ML Prothrombin Time 15.3 H 12.2-14.7 SEC INR Comment 1.2 0.8-1.4 Activated Partial Thromboplast Time 31 24-35 SEC My Orders Orders - NELL CARPIO Ed Iv/Invasive Line Start (05/29/20 16:46) Lactated Ringers (Lr 1000 Ml Iv Solution (05/29/20 16:46) Ibuprofen Tablet (Motrin Tablet) (05/29/20 17:00) Cbc With Automated Diff (05/29/20 16:46) Comprehensive Metabolic Panel (05/29/20 16:46) Hs C Reactive Protein (05/29/20 16:46) Procalcitonin (Pct) (05/29/20 16:46) Erythrocyte Sedimentation Rate (05/29/20 16:46) Ondansetron Injection (Zofran Injectio (05/29/20 17:00) Coronavirus Sars-Cov-2 So 2018 (05/29/20 16:55) Ondansetron Injection (Zofran Injectio (05/29/20 16:50) Manual Differential (05/29/20 16:30) Blood Culture (05/29/20 16:57) Sputum Culture (05/29/20 16:57) Protime With Inr (05/29/20 16:57) Partial Thromboplastin Time (05/29/20 16:57) Chest 1 View, Ap/Pa Only (05/29/20 16:57) Ed Iv/Invasive Line Start (05/29/20 16:57) Ed Iv/Invasive Line Start (05/29/20 16:57) Ekg Tracing (05/29/20 16:57) Troponin I (05/29/20 16:57) Vital Signs Adult Sepsis Patie Q15M (05/29/20 16:57) O2 (05/29/20 16:57) Remove Rings In Anticipation O (05/29/20 16:57) Lactic Acid Analyzer (05/29/20 16:57) Medications Given in ED Current Medications Medications Dose Ordered Sig/Laz Route Start Time Stop Time Status Last Admin Dose Admin Ibuprofen 800 mg ONCE ONCE PO 05/29/20 17:00 05/29/20 17:01 DC 05/29/20 16:52 800 MG Lactated Ringer's 1,000 ml @ 0 mls/hr Q0M ONCE IV 05/29/20 16:46 05/29/20 16:47 DC 05/29/20 16:52 1,000 MLS/HR Ondansetron HCl 4 mg ONCE ONCE IVP 05/29/20 17:00 05/29/20 17:01 DC 05/29/20 16:57 4 MG Vital Signs/I&O 05/29/20 16:20 Temp 39.1 Pulse 109 Resp 16 B/P (MAP) 179/102 (127) Pulse Ox 94 O2 Delivery Room Air Capillary Refill : Less Than 3 Seconds Blood Pressure Mean: 127 Progress Note : Time: 17:03 Progress Note Fever and tachycardia with suspected respiratory infection. Plan to give her 30 mL/kg which would be 2 L. We'll hold off on IV antibiotics and swab for COVID 19. Zofran. She does not likely need hospitalization at this time despite being septic if we can make her feel better with some fluids and Motrin. ECG Initial ECG Impression Date: May 29, 2020 Initial ECG Impression Time: 16:57 Initial ECG Rate: 98 Initial ECG Rhythm: Normal Sinus Initial ECG Intervals: Normal Initial ECG Impression: Normal Comment LVH and sinus rhythm without ST elevation or depression. Diagnostic Imaging Diagonstic Imaging: Xray Plain Films/CT/US/NM/MRI: chest Comments [facility]. [place], [place] NAME: APOLONIA ADAMS [facility] REC#: [id number] PT STATUS: REG ER : 1970 PHYSICIAN: NELL CARPIO MD ADMIT DATE: 05/29/20/ER Signed Date of Exam:05/29/20 CHEST 1 VIEW, AP/PA ONLY CHEST 1 VIEW, AP/PA ONLY Indication: Shortness of air Comparison: 09/17/2019 Findings: No focal airspace disease in the visualized lungs. Please note that the posterior lower lobes are poorly evaluated by portable radiography. No pleural effusion or pneumothorax. Normal cardiomediastinal silhouette. Impression: 1. No acute cardiopulmonary process by portable radiography. Dictated by: Dictated on workstation # [id number] Dict: 05/29/201801 Trans: 05/29/201801 [facility] [id number] Interpreted by: NAVJOT DAVIS MD Electronically signed by: NAVJOT DAVIS MD 05/29/201801 Reviewed: Reviewed by Me Departure Impression Primary Impression: Viral pneumonia Additional Impression: Person under investigation for COVID-19 Disposition: 01 HOME, SELF-CARE Condition: Improved Departure-Patient Inst. Decision time for Depature: 18:17 Referrals: [facility] (PCP/Family) Primary Care Physician Patient Instructions: Coronavirus Disease 2019 (COVID-19) (DC) Add. Discharge Instructions: Drink plenty of fluids. Tylenol 1000 mg every 8 hours as necessary for pain. Ibuprofen 800 mg every 8 hours as necessary for pain. Ondansetron one tablet every 6 hours under the tongue as necessary for nausea or vomiting. Return to the ER if you have worsening shortness of breath or other worrisome concerns. All discharge instructions reviewed with patient and/or family. Voiced understanding. Scripts Albuterol Sulfate (PROAIR HFA) 1 Puff Puff 2 PUFF IH Q4H PRN for WHEEZING, #1 EA 0 Refills 1 PUFF = 90 MCG Prov: NELL CARPIO 9/6/20 Ondansetron (Ondansetron Odt) 4 Mg Tab.rapdis 4 MG PO Q6H PRN for NAUSEA/VOMITING, #8 TAB 0 Refills Prov: NELL CARPIO 05/29/20 Work/School Note: Work Release Form Date Seen in the Emergency Department: May 29, 2020 Return to Work: Jun 06, 2020 Restrictions: No Restrictions Other Restrictions Listed Below: Must be 72 hours symptom free prior to returning to work. Quarantine 10 day NELL CARPIO May 29, 2020 16:57
[2020-05-29] MEDS ORDERED: ONDANSETRON 4 MG/2 ML (SDV) Z0FRAN IVP ONE (17:00)
[2020-05-29] MEDS ORDERED: IBUPROFEN 800 MG (MOTRIN) TAB PO ONE (17:00)
[2020-05-29 17:02] LABS: ALBUMIN 3.9 GM/DL (3.2-4.5); CHLORIDE 99 MMOL/L (98-107); POTASSIUM 3.7 MMOL/L (3.6-5.0); SODIUM 134 MMOL/L (135-145)
[2020-05-29 17:03] LABS: CALCIUM 9.2 MG/DL (8.5-10.1)
[2020-05-29 17:04] LABS: GLUCOSE 131 MG/DL (70-105); TOTAL PROTEIN 8.5 GM/DL (6.4-8.2)
[2020-05-29 17:05] LABS: CARBON DIOXIDE 24 MMOL/L (21-32)
[2020-05-29 17:06] LABS: BILIRUBIN,TOTAL 0.7 MG/DL (0.1-1.0)
[2020-05-29 17:08] LABS: ALKALINE PHOSPHATASE 64 U/L (40-136); CREATININE SERUM 0.88 MG/DL (0.60-1.30); GFR ESTIMATED > 60
[2020-05-29 17:09] LABS: BUN/CREATININE RATIO 13
[2020-05-29 17:11] LABS: ALANINE AMINOTRANSFERASE 20 U/L (0-55)
[2020-05-29 17:11] LABS: INR 1.2 (0.8-1.4); PROTHROMBIN TIME PATIENT 15.3 SEC (12.2-14.7)
[2020-05-29 17:13] LABS: ANISOCYTOSIS SLIGHT; BAND NEUTROPHILS 4 %; LYMPHOCYTES % (MANUAL) 11 %; MICROCYTOSIS SLIGHT; MONOCYTES % (MANUAL) 6 %; NEUTROPHILS % (MANUAL) 79 %
[2020-05-29 17:16] LABS: ERYTHROCYTE SEDIMENTATION RATE 82 MM/HR (0-20)
--- NOTE | 2020-05-29 18:04 | Diagnostic Imaging Report ---
CHEST 1 VIEW, AP/PA ONLY Indication: Shortness of air Comparison: 09/17/2019 Findings: No focal airspace disease in the visualized lungs. Please note that the posterior lower lobes are poorly evaluated by portable radiography. No pleural effusion or pneumothorax. Normal cardiomediastinal silhouette. Impression: 1. No acute cardiopulmonary process by portable radiography. Dictated by: Dictated on workstation # [id number]
[2020-05-29] MEDS ORDERED: ONDA4TAB11 PO (18:19)
[2020-05-29] MEDS ORDERED: RT-ALBUINH IH (18:19)
[2020-05-29 18:32] VITALS: BP 155/88
== END 2020-05-29 18:32 | disposition home or self-care (01) ==
LOC: EDUNIT# 16:01 → ER 16:02
DX: J12.9 Viral pneumonia, unspecified (principal); F41.9 Anxiety disorder, unspecified; I10 Essential (primary) hypertension; Z20.828 Contact with and (suspected) exposure to other viral communicable diseases; Z82.49 Family history of ischemic heart disease and other diseases of the circulatory system; Z80.9 Family history of malignant neoplasm, unspecified
CPT/HCPCS: 71045; 80053; 83605; 84145; 84484; 85007; 85027; 85610; 85652; 85730; 86141; 87040; 93005; 99284; U0002; 36415; 87635

== ENCOUNTER → 2020-06-10 | Outpatient (CLI) | payer SELFPAY ==
[~2020-06-10] MED LIST changes: +ONDA4TAB11 PO; +RT-ALBUINH IH
--- NOTE | 2020-06-10 14:43 | Diagnostic Imaging Report ---
PROCEDURE: MRI left upper extremity without contrast. TECHNIQUE: Multiplanar, multisequence non contrast-enhanced MRI of the left upper extremity was accomplished. INDICATION: Injury, elbow pain. FINDINGS: There are no prior studies available for comparison. Reportedly, the patient has had a previous fracture of her left elbow. On this exam, there is deformity of the posterior third of the articular surface of the radial head. This would be consistent with a prior fracture. In addition, there is a vague area of altered signal within the neck of the radius. I suspect this is secondary to bone edema from a contusion and/or microfracture. There is also slight irregularity of the articular surface of the lateral epicondyle of the distal humerus and this too may be a sequela of prior trauma. The radial collateral ligament is not well visualized and consequently most likely torn. There is also some irregularity of the common extensor tendon consistent with a partial tear. A small joint effusion is also seen. There is no other acute or subacute bony abnormality identified. The ulnar collateral ligament is identified and seems to be intact. There is no abnormal signal arising from the common flexor tendon either. The biceps tendon, the brachioradialis tendon, and the triceps tendon appear to be intact. IMPRESSION: 1. There are subacute fractures of the posterior half of the radial head and the articular surface of the lateral epicondyle. There also appears to be bone edema from a contusion or microfracture of the radial neck. There is no acute bony abnormality noted otherwise. 2. The poor visualization of the radial collateral ligament would indicate that the ligament is torn. There also appears to be a partial tear of the common extensor tendon. 3. The ulnar collateral ligament, the common flexor tendon, the biceps and triceps tendon, and the brachioradialis tendon are intact. 4. There is a small joint effusion present. Dictated by: Dictated on workstation # [id number]
== END ==
LOC: RAD 13:13
PROVIDERS: ATTEND Nurse Practitioner
DX: S53.442A Ulnar collateral ligament sprain of left elbow, initial encounter (principal); S52.122A Displaced fracture of head of left radius, initial encounter for closed fracture
CPT/HCPCS: 73221

== ENCOUNTER → 2021-02-03 | Outpatient (CLI) | payer SELFPAY ==
[~2021-02-03] MED LIST changes: +CLN.2T PO; -CLON0.2T PO; +SERT-413 PO; -SERT50TA9 PO
--- NOTE | 2021-02-03 15:52 | Diagnostic Imaging Report ---
PROCEDURE: CT head without contrast. TECHNIQUE: Multiple contiguous axial images were obtained through the brain without the use of intravenous contrast. Auto Exposure Controls were utilized during the CT exam to meet ALARA standards for radiation dose reduction. INDICATION: Syncope. COMPARISON is made with prior CT from 02/13/2015. The ventricles and sulci are within normal limits. No sulcal effacement or midline shift is identified. No acute intra-axial or extra-axial hemorrhage is detected. Cisterns are patent. There is some fluid in the left maxillary sinus. IMPRESSION: No acute intracranial process is detected. Dictated by: Dictated on workstation # [id number]
== END ==
LOC: RAD 13:44
PROVIDERS: ATTEND Physician Assistant
DX: R55 Syncope and collapse (principal)
CPT/HCPCS: 70450

== ENCOUNTER 2021-04-29 00:37 | Emergency (ER) | payer OTHER ==
[~2021-04-29] VITALS: Ht 160 cm; Wt 99.8 kg
[2021-04-29] MEDS: NITROGLYCERIN 0.4 MG SL TABS BTL 25'S SL PRN ×3 (00:58→01:08)
[2021-04-29 01:00] LABS: BASOPHILS % (AUTO) 0 % (0-10); EOSINOPHILS # (AUTO) 0.1 10^3/uL (0.0-0.3); EOSINOPHILS % (AUTO) 2 % (0-10); HEMATOCRIT 44 % (35-52); HEMOGLOBIN 13.6 g/dL (11.5-16.0); LYMPHOCYTES # (AUTO) 1.4 10^3/uL (1.0-4.0); LYMPHOCYTES % (AUTO) 18 % (12-44); MEAN CORPUSCULAR HEMOGLOBIN 25 pg (25-34); MEAN CORPUSCULAR HGB CONC 31 g/dL (32-36); MEAN CORPUSCULAR VOLUME 79 fL (80-99); MEAN PLATELET VOLUME 10.7 fL (9.0-12.2); MONOCYTES # (AUTO) 0.7 10^3/uL (0.0-1.0); MONOCYTES % (AUTO) 8 % (0-12); NEUTROPHILS # (AUTO) 5.7 10^3/uL (1.8-7.8); NEUTROPHILS % (AUTO) 72 % (42-75); PLATELET COUNT 271 10^3/uL (130-400)
[2021-04-29] MEDS ORDERED: ASPIRIN 81 MG CHEW (CHILDREN'S ASA) PO ONE (01:00)
[2021-04-29 01:14] LABS: ALBUMIN 4.2 GM/DL (3.2-4.5)
[2021-04-29 01:15] LABS: CALCIUM 9.5 MG/DL (8.5-10.1)
[2021-04-29] MEDS ORDERED: KETOROLAC 30 MG/ML VIAL IVP ONE (01:15)
[2021-04-29 01:16] LABS: TOTAL PROTEIN 8.2 GM/DL (6.4-8.2)
[2021-04-29 01:17] LABS: PROTHROMBIN TIME PATIENT 13.5 SEC (12.2-14.7)
[2021-04-29 01:18] LABS: BILIRUBIN,TOTAL 0.4 MG/DL (0.1-1.0)
[2021-04-29 01:20] LABS: CREATININE SERUM 0.86 MG/DL (0.60-1.30)
[2021-04-29 01:23] LABS: MAGNESIUM 1.9 MG/DL (1.6-2.4)
--- NOTE | 2021-04-29 02:51 | ED Chest Pain ---
General Chief Complaint: Chest Pain Stated Complaint: CP,BLURRY VISION Nursing Triage Note: PT AMBULATES TO ROOM #5 W/CO SUDDEN ONSET DIZZINESS, BLURRED VISION, AND CHEST DISCOMFORT. PT REPORTS AT 0000 WHILE WORKING SHE SUDDENLY BEGAN TO EXPERIENCE SX THAT HAVE REMAINED CONSTANT SINCE ONSET. PT RPEORTS L SIDED CHEST DISCOMFORT DESCRIBED "LIKE SOMEONE IS STABBING ME." REPORTS HX HTN. 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 Source: patient Allergies and Home Medications Allergies Coded Allergies: No Known Drug Allergies (Verified , 09/02/07) Home Medications Albuterol Sulfate 1 Puff Puff, 2 PUFF IH Q4H PRN for WHEEZING 1 PUFF = 90 MCG Prescribed by: NELL CARPIO on 05/29/201818 Amlodipine Besylate 10 Mg Tablet, 10 MG PO DAILY, (Reported) Carvedilol 6.25 Mg Tablet, 6.25 MG PO BID, (Reported) Clonidine HCl 0.2 Mg Tablet, 0.2 MG PO BID Prescribed by: TRUDI AGUILAR on 09/17/19 1529 Hctz/Lisinopril 1 Tab Tablet, 1 TAB PO DAILY, (Reported) Hydralazine HCl 10 Mg Tablet, 10 MG PO TID PRN for BLOOD PRESSURE TAKE NEEDED THREE TIMES A DAY FOR SYSTOLIC BP > 160 OR DIASTOLIC BP > 100 Prescribed by: GALLO LINDSAY on 04/29/21354 Hydroxyzine Hcl 50 Mg Tablet, 50 MG PO TID, (Reported) Naproxen 500 Mg Tablet.dr, 500 MG PO BID Prescribed by: GALLO LINDSAY on 04/29/21354 Ondansetron 4 Mg Tab.rapdis, 4 MG PO Q6H PRN for NAUSEA/VOMITING Prescribed by: NELL CARPIO on 05/29/201818 Past Zsdbtog-Zhsjqd-Fkayoc Hx Patient Social History Tobacco Use?: No Substance use?: No Alcohol Use?: No Pt feels they are or have been: No Immunizations Up To Date Tetanus Booster (TDap): More than 5yrs First/Initial COVID19 Vaccinat: DECEMBER 2020 Second COVID19 Vaccination Lloyd: FEBRUARY 2021 COVID19 Vaccine Rug Inspector: UNKNOWN Seasonal Allergies Seasonal Allergies: Yes Past Medical History Surgeries: Yes (HIATAL HERNIA REPAIR, DENTAL SX, KNEE, ANKLE) Abdominal, Orthopedic, Tonsillectomy, Tubal Ligation Respiratory: Yes COPD Cardiac: Yes Hypertension Neurological: Yes Headaches /Migraines, Multiple Sclerosis 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 Disorders: No 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 Sexually Transmitted Disease: No HIV/AIDS: No UTI-Chronic Gastrointestinal: Yes Colitis, Gastroesophageal Reflux, Crohns Disease Musculoskeletal: Yes (MULTIPLE FX, MS ) Fractures Endocrine: No Diabetes, Non-Insulin dep Cancer: No Psychosocial: Yes Anxiety, Depression Integumentary: No Blood Disorders: No Adverse Reaction/Blood Tranf: No Family Medical History Family history: Cardiovascular disease 03 FATHER GRANDPARENTS Family history: Diabetes mellitus GRANDPARENTS Heart disease 03 FATHER GRANDPARENTS Cancer, CAD Under 55 Years Old, Diabetes, Hypertension, Seizures Physical Exam Vital Signs Vital Signs - First Documented 04/29/21 00:45 Temp 36.8 Pulse 80 Resp 17 B/P (MAP) 192/103 (132) Pulse Ox 96 O2 Delivery Room Air Capillary Refill : Less Than 3 Seconds Height, Weight, BMI Height: 5'3" Weight: 240lbs. 0.0oz. 108.619159dy; 38.00 BMI Method:Stated Progress/Results/Core Measures Results/Orders Lab Results Laboratory Tests Test 04/29/21 00:52 Range/Units White Blood Count 8.0 4.3-11.0 10^3/uL Red Blood Count 5.56 H 3.80-5.11 10^6/uL Hemoglobin 13.6 11.5-16.0 g/dL Hematocrit 44 35-52 % Mean Corpuscular Volume 79 L 80-99 fL Mean Corpuscular Hemoglobin 25 25-34 pg Mean Corpuscular Hemoglobin Concent 31 L 32-36 g/dL Red Cell Distribution Width 14.8 H 10.0-14.5 % Platelet Count 271 130-400 10^3/uL Mean Platelet Volume 10.7 9.0-12.2 fL Immature Granulocyte % (Auto) 1 % Neutrophils (%) (Auto) 72 42-75 % Lymphocytes (%) (Auto) 18 12-44 % Monocytes (%) (Auto) 8 0-12 % Eosinophils (%) (Auto) 2 0-10 % Basophils (%) (Auto) 0 0-10 % Neutrophils # (Auto) 5.7 1.8-7.8 10^3/uL Lymphocytes # (Auto) 1.4 1.0-4.0 10^3/uL Monocytes # (Auto) 0.7 0.0-1.0 10^3/uL Eosinophils # (Auto) 0.1 0.0-0.3 10^3/uL Basophils # (Auto) 0.0 0.0-0.1 10^3/uL Immature Granulocyte # (Auto) 0.0 0.0-0.1 10^3/uL Prothrombin Time 13.5 12.2-14.7 SEC INR Comment 1.0 0.8-1.4 Activated Partial Thromboplast Time 27 24-35 SEC Sodium Level 144 135-145 MMOL/L Potassium Level 4.0 3.6-5.0 MMOL/L Chloride Level 111 H 98-107 MMOL/L Carbon Dioxide Level 19 L 21-32 MMOL/L Anion Gap 14 5-14 MMOL/L Blood Urea Nitrogen 16 7-18 MG/DL Creatinine 0.86 0.60-1.30 MG/DL Estimat Glomerular Filtration Rate 70 BUN/Creatinine Ratio 19 Glucose Level 128 H 70-105 MG/DL Calcium Level 9.5 8.5-10.1 MG/DL Corrected Calcium 9.3 8.5-10.1 MG/DL Magnesium Level 1.9 1.6-2.4 MG/DL Total Bilirubin 0.4 0.1-1.0 MG/DL Aspartate Amino Transf (AST/SGOT) 15 5-34 U/L Alanine Aminotransferase (ALT/SGPT) 14 0-55 U/L Alkaline Phosphatase 63 40-136 U/L Total Creatine Kinase 49 29-168 U/L Creatine Kinase MB 1.0 <6.6 NG/ML Myoglobin 22.5 10.0-92.0 NG/ML Troponin I < 0.028 <0.028 NG/ML B-Type Natriuretic Peptide 58.8 <100.0 PG/ML Total Protein 8.2 6.4-8.2 GM/DL Albumin 4.2 3.2-4.5 GM/DL Amylase Level 74 25-125 U/L Lipase 20 8-78 U/L My Orders Orders - GALLO ILNDSAY DO Cbc With Automated Diff (04/29/21 00:52) Magnesium (04/29/21 00:52) Chest 1 View, Ap/Pa Only (04/29/21 00:52) Ekg Tracing (04/29/21 00:52) Comprehensive Metabolic Panel (04/29/21 00:52) Myoglobin Serum (04/29/21 00:52) Protime With Inr (04/29/21 00:52) Partial Thromboplastin Time (04/29/21 00:52) O2 (04/29/21 00:52) Monitor-Rhythm Ecg Trace Only (04/29/21 00:52) Ed Iv/Invasive Line Start (04/29/21 00:52) Creatine Kinase (04/29/21 00:52) Creatine Kinase Mb (04/29/21 00:52) Lipase (04/29/21 00:52) Amylase (04/29/21 00:52) BNP (04/29/21 00:52) Troponin I (04/29/21 00:52) Nitroglycerin 0.4 Mg Btl 25's (Nitrostat (04/29/21 01:00) Aspirin Chewable Tablet (Baby Aspirin Ch (04/29/21 01:00) Ketorolac Injection (Toradol Injection) (04/29/21 01:15) Hydralazine Injection (Apresoline Inject (04/29/21 03:00) Hydralazine Injection (Apresoline Inject (04/29/21 03:45) Medications Given in ED Current Medications Medications Dose Ordered Sig/Laz Route Start Time Stop Time Status Last Admin Dose Admin Aspirin 324 mg ONCE ONCE PO 04/29/21 01:00 04/29/21 01:01 DC 04/29/21 00:56 324 MG Hydralazine HCl 10 mg ONCE ONCE IV 04/29/21 03:00 04/29/21 03:01 DC 04/29/21 03:01 10 MG Hydralazine HCl 10 mg ONCE ONCE IV 04/29/21 03:45 04/29/21 03:46 DC 04/29/21 03:52 10 MG Ketorolac Tromethamine 30 mg ONCE ONCE IVP 04/29/21 01:15 04/29/21 01:16 DC 04/29/21 01:08 30 MG Nitroglycerin 0.4 mg UD PRN SL 04/29/21 01:00 04/29/21 01:09 DC 04/29/21 01:08 0.4 MG Vital Signs/I&O 04/29/21 04/29/21 00:45 00:45 Temp 36.8 Pulse 80 Resp 17 B/P (MAP) 192/103 (132) Pulse Ox 96 O2 Delivery Room Air Room Air Blood Pressure Mean: 132 Progress Progress Note : Progress Note GIVEN ASPIRIN AND NTG GIVEN TORADOL WITH IMPROVEMENT IN PAIN BP CONTINUED TO BE ELEVATED, GIVEN HYDRALAZINE X 2 DOSES WITH BP DOWN AT DISMISS AL AND PT IS ANXIOUS TO GO HOME PT STATES HER BP HAS OFTEN BEEN IN 200'S /120'S AND ABOVE PT CURRENTLY IS ON 3 DIFFERENT MEDICATIONS FOR BLOOD PRESSURE. Departure Impression Primary Impression: Left-sided chest wall pain Additional Impression: HTN (hypertension) Disposition: HOME, SELF-CARE Condition: Improved Departure-Patient Inst. Decision time for Depature: 04:18 Referrals: [facility] (PCP/Family) Primary Care Physician KAM PINO MD Patient Instructions: DASH Diet, Chest Pain (DC), Costochondritis (DC), High Blood Pressure ED Add. Discharge Instructions: CONTINUE YOUR REGULAR MEDICATIONS PRESCRIBED FOLLOW UP WITH DR. PINO NEXT WEEK FOR FURTHER CARE--CALL ON SATURDAY TO SCHEDULE APPOINTMENT RETURN TO ER IF WORSE All discharge instructions reviewed with patient and/or family. Voiced understanding. Scripts Naproxen (Naproxen) 500 Mg Tablet. 500 MG PO BID, #20 TAB Prov: GALLO LINDSAY DO 04/29/21 Hydralazine HCl (Hydralazine HCl) 10 Mg Tablet 10 MG PO TID PRN for BLOOD PRESSURE, #15 TAB TAKE NEEDED THREE TIMES A DAY FOR SYSTOLIC BP > 160 OR DIASTOLIC BP > 100 Prov: GALLO LINDSAY DO 04/29/21 GALLO LINDSAY DO Apr 29, 2021 02:51
[2021-04-29] MEDS ORDERED: hydrALAZINE (APESOLINE) 20 MG/ML VIAL IV ONE ×2 (03:00→03:45)
[2021-04-29] MEDS ORDERED: HYDR-3922 PO (03:55)
[2021-04-29] MEDS ORDERED: NAPR500T8 PO (03:55)
[2021-04-29 04:25] VITALS: BP 180/85
--- NOTE | 2021-04-29 07:49 | Diagnostic Imaging Report ---
EXAM: CHEST 1 VIEW, AP/PA ONLY INDICATION: Chest pain. COMPARISON: Chest radiograph 05/29/2020. FINDINGS: Normal heart size and pulmonary vascularity. No dense consolidation, pleural effusion or pneumothorax. No acute osseous findings. No significant change. IMPRESSION: No acute cardiopulmonary findings. Dictated by: Dictated on workstation # [id number]
== END 2021-04-29 04:25 | disposition home or self-care (01) ==
LOC: EDUNIT# 00:37 → ER 00:41
DX: R07.89 Other chest pain (principal); I10 Essential (primary) hypertension; J44.9 Chronic obstructive pulmonary disease, unspecified; F41.9 Anxiety disorder, unspecified; E11.9 Type 2 diabetes mellitus without complications; Z79.899 Other long term (current) drug therapy
CPT/HCPCS: 36415; 71045; 80053; 82150; 82550; 82553; 83690; 83735; 83874; 83880; 84484; 85025; 85610; 85730; 93005; 93041; 96374; 96375; 96376

== ENCOUNTER 2021-10-20 16:04 | Emergency (ER) | payer OTHER ==
[~2021-10-20 16:04] MED LIST changes: +HYDR-3922 PO; +NAPR500T8 PO
[2021-10-20 16:42] LABS: BASOPHILS % (AUTO) 0 % (0-10); EOSINOPHILS % (AUTO) 0 % (0-10); HEMATOCRIT 41 % (35-52); HEMOGLOBIN 12.6 g/dL (11.5-16.0); LYMPHOCYTES # (AUTO) 0.8 10^3/uL (1.0-4.0); LYMPHOCYTES % (AUTO) 9 % (12-44); MEAN CORPUSCULAR HEMOGLOBIN 25 pg (25-34); MEAN CORPUSCULAR HGB CONC 31 g/dL (32-36); MEAN CORPUSCULAR VOLUME 79 fL (80-99); MEAN PLATELET VOLUME 11.2 fL (9.0-12.2); MONOCYTES # (AUTO) 0.8 10^3/uL (0.0-1.0); MONOCYTES % (AUTO) 8 % (0-12); NEUTROPHILS # (AUTO) 7.6 10^3/uL (1.8-7.8); NEUTROPHILS % (AUTO) 82 % (42-75); PLATELET COUNT 210 10^3/uL (130-400); WHITE BLOOD COUNT 9.3 10^3/uL (4.3-11.0)
[2021-10-20] MEDS ORDERED: ASPIRIN 81 MG CHEW (CHILDREN'S ASA) PO ONE (16:45)
[2021-10-20 16:55] LABS: ALBUMIN 3.8 GM/DL (3.2-4.5); POTASSIUM 3.4 MMOL/L (3.6-5.0)
[2021-10-20 16:56] LABS: CALCIUM 8.7 MG/DL (8.5-10.1)
[2021-10-20 16:57] LABS: TOTAL PROTEIN 7.5 GM/DL (6.4-8.2)
--- NOTE | 2021-10-20 16:58 | Diagnostic Imaging Report ---
INDICATION: Hypertension Frontal chest obtained at 04:58 p.m. and compared to 04/29/2021 Heart and mediastinal silhouette are normal in appearance. The lungs are clear. There is no pneumothorax or pleural fluid. IMPRESSION: Negative chest. Dictated by: Dictated on workstation # [id number]
[2021-10-20 16:59] LABS: BILIRUBIN,TOTAL 1.1 MG/DL (0.1-1.0)
[2021-10-20 17:01] LABS: CREATININE SERUM 0.83 MG/DL (0.60-1.30)
[2021-10-20 17:03] LABS: MAGNESIUM 1.9 MG/DL (1.6-2.4)
--- NOTE | 2021-10-20 17:09 | ED Chest Pain ---
General Chief Complaint: Chest Pain Stated Complaint: HEADACHE,ELEV HR,ELEV AND LOW BP Nursing Triage Note: PT AMB TO RM 4 WITH C/O CP, ELEV BP THEN LOW BP AND MIGRAINE THAT STARTED AROUND 0400 THIS MORNING Source: patient Exam Limitations: no limitations (TRUDI AGUILAR APRN) History of Present Illness Date Seen by Provider: Oct 20, 2021 Time Seen by Provider: 17:08 Initial Comments to ER with headache, to ER with a headache, elevated heart rate, her blood pressure fluctuating between high and low, feeling like her heart is going to explode. This began yesterday. She is vaccinated against Covid but she feels like she was probably exposed to someone at work at [employer]. Timing/Duration: 1-2 days Severity/Quality: moderate Radiation: no radiation Activities at Onset: none Prior CP/Workup: no prior chest pain ASA po SHOP MECHANIC: No NTG SL SHOP MECHANIC: No (TRUDI AGUILAR APRN) Allergies and Home Medications Allergies Coded Allergies: No Known Drug Allergies (Verified , 09/02/07) Patient Home Medication List Home Medication List Reviewed: Yes (TRUDI AGUILAR APRN) Albuterol Sulfate (Proair Hfa) 1 Puff Puff, 2 PUFF IH Q4H PRN for WHEEZING Prescribed by: NELL CARPIO on 05/29/20 1819 Amlodipine Besylate (Norvasc Tablet) 10 Mg Tablet, 10 MG PO DAILY, (Reported) Entered as Reported by: NATHEN RIOS on 02/28/13 1639 Carvedilol (Carvedilol) 6.25 Mg Tablet, 6.25 MG PO BID, (Reported) Entered as Reported by: CARMELITA MILLER on 09/17/19 1409 Clonidine HCl (Clonidine HCl) 0.2 Mg Tablet, 0.2 MG PO BID Prescribed by: TRUDI AGUILAR on 09/17/19 1529 Hctz/Lisinopril (Lisinopril-Hctz 20-25MG Tab) 1 Tab Tablet, 1 TAB PO DAILY, (Reported) Entered as Reported by: NATHEN RIOS on 04/03/12 1404 Hydralazine HCl (Hydralazine HCl) 10 Mg Tablet, 10 MG PO TID PRN for BLOOD PRESSURE Prescribed by: GALLO LINDSAY on 04/29/21 0355 Hydroxyzine Hcl (Hydroxyzine 50 Mg Tablet) 50 Mg Tablet, 50 MG PO TID, (Reported) Entered as Reported by: DEENA VALVERDE on 05/19/14 1035 Naproxen (Naproxen) 500 Mg Tablet.dr, 500 MG PO BID Prescribed by: GALLO LINDSAY on 04/29/21 0355 Ondansetron (Ondansetron Odt) 4 Mg Tab.rapdis, 4 MG PO Q6H PRN for NAUSEA/VOMITING Prescribed by: NELL CARPIO on 05/29/20 1819 Sertraline HCl (Sertraline HCl) 50 Mg Tablet, 50 MG PO, (Reported) Entered as Reported by: CARMELITA MILLER on 09/17/19 1410 Review of Systems Review of Systems Constitutional: see HPI EENTM: No Symptoms Reported Respiratory: No Symptoms Reported Cardiovascular: No Symptoms Reported Gastrointestinal: No Symptoms Reported Genitourinary: No Symptoms Reported Musculoskeletal: no symptoms reported Skin: no symptoms reported Psychiatric/Neurological: See HPI, Headache Endocrine: No Symptoms Reported Hematologic/Lymphatic: No Symptoms Reported (TRUDI AGUILAR APRN) Past Asyhjes-Rugtut-Ywxhsj Hx Patient Social History Tobacco Use?: No Substance use?: No Alcohol Use?: Yes Alcohol type: Wine Alcohol Frequency: Rarely Pt feels they are or have been: No (TRUDI AGUILAR APRN) Immunizations Up To Date Tetanus Booster (TDap): More than 5yrs Influenza Vaccine Up-to-Date: Yes; Up-to-Date First/Initial COVID19 Vaccinat: 01/23/21 Second COVID19 Vaccination Lloyd: 02/27/21 COVID19 Vaccine Planer Mill Grader: CAROLYN (TRUDI AGUILAR APRN) Seasonal Allergies Seasonal Allergies: Yes (TRUDI AGUILAR APRN) Past Medical History Surgery/Hospitalization HX: MIGRAINES, HTN, CROHNS, UC, ANXIETY, DEPRESSION, MS, Surgeries: Yes (HIATAL HERNIA REPAIR, DENTAL SX, KNEE, ANKLE) Abdominal, Orthopedic, Tonsillectomy, Tubal Ligation Respiratory: Yes COPD Cardiac: Yes Hypertension Neurological: Yes Headaches /Migraines, Multiple Sclerosis Last Menstrual Period: Sep 23, 2021 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 Disorders: No Female 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 Disorders: Denies 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 ORTHO SURGERIES) Fractures Endocrine: No Diabetes, Non-Insulin dep Cancer: No Psychosocial: Yes Anxiety, Depression Integumentary: No Blood Disorders: No Adverse Reaction/Blood Tranf: No (TRUDI AGUILAR APRN) Family Medical History Family history: Cardiovascular disease 03 FATHER GRANDPARENTS Family history: Diabetes mellitus GRANDPARENTS Heart disease 03 FATHER GRANDPARENTS Cancer, CAD Under 55 Years Old, Diabetes, Hypertension, Seizures (TRUDI AGUILAR APRN) Physical Exam Vital Signs Vital Signs - First Documented 10/20/21 16:15 Temp 36.1 Pulse 100 Resp 20 B/P (MAP) 142/90 (107) Pulse Ox 97 (ANGÉLICA GALVEZ MD) Vital Signs Capillary Refill : (TRUDI AGUILAR APRN) Height, Weight, BMI Height: 5'3" Weight: 240lbs. 0.0oz. 108.045849qm; 38.00 BMI Method:Stated General Appearance: No Apparent Distress, WD/WN Respiratory: Normal Breath Sounds, No Accessory Muscle Use, No Respiratory Distress Cardiovascular: Regular Rate, Rhythm, Normal Peripheral Pulses Gastrointestinal: Normal Bowel Sounds, Non Tender, Soft Extremity: Normal Capillary Refill, Normal Inspection Neurologic/Psychiatric: Alert, Oriented x3 Skin: Normal Color, Warm/Dry (TRUDI AGUILAR APRN) Progress/Results/Core Measures Results/Orders Lab Results Laboratory Tests Test 10/20/21 16:30 10/20/21 18:27 Range/Units White Blood Count 9.3 4.3-11.0 10^3/uL Red Blood Count 5.14 H 3.80-5.11 10^6/uL Hemoglobin 12.6 11.5-16.0 g/dL Hematocrit 41 35-52 % Mean Corpuscular Volume 79 L 80-99 fL Mean Corpuscular Hemoglobin 25 25-34 pg Mean Corpuscular Hemoglobin Concent 31 L 32-36 g/dL Red Cell Distribution Width 14.6 H 10.0-14.5 % Platelet Count 210 130-400 10^3/uL Mean Platelet Volume 11.2 9.0-12.2 fL Immature Granulocyte % (Auto) 0 % Neutrophils (%) (Auto) 82 H 42-75 % Lymphocytes (%) (Auto) 9 L 12-44 % Monocytes (%) (Auto) 8 0-12 % Eosinophils (%) (Auto) 0 0-10 % Basophils (%) (Auto) 0 0-10 % Neutrophils # (Auto) 7.6 1.8-7.8 10^3/uL Lymphocytes # (Auto) 0.8 L 1.0-4.0 10^3/uL Monocytes # (Auto) 0.8 0.0-1.0 10^3/uL Eosinophils # (Auto) 0.0 0.0-0.3 10^3/uL Basophils # (Auto) 0.0 0.0-0.1 10^3/uL Immature Granulocyte # (Auto) 0.0 0.0-0.1 10^3/uL Sodium Level 137 135-145 MMOL/L Potassium Level 3.4 L 3.6-5.0 MMOL/L Chloride Level 104 98-107 MMOL/L Carbon Dioxide Level 20 L 21-32 MMOL/L Anion Gap 13 5-14 MMOL/L Blood Urea Nitrogen 11 7-18 MG/DL Creatinine 0.83 0.60-1.30 MG/DL Estimat Glomerular Filtration Rate 85 BUN/Creatinine Ratio 13 Glucose Level 112 H 70-105 MG/DL Calcium Level 8.7 8.5-10.1 MG/DL Corrected Calcium 8.9 8.5-10.1 MG/DL Magnesium Level 1.9 1.6-2.4 MG/DL Total Bilirubin 1.1 H 0.1-1.0 MG/DL Aspartate Amino Transf (AST/SGOT) 14 5-34 U/L Alanine Aminotransferase (ALT/SGPT) 9 0-55 U/L Alkaline Phosphatase 51 40-136 U/L Myoglobin 28.7 10.0-92.0 NG/ML Troponin I < 0.028 <0.028 NG/ML B-Type Natriuretic Peptide 64.1 <100.0 PG/ML Total Protein 7.5 6.4-8.2 GM/DL Albumin 3.8 3.2-4.5 GM/DL Prothrombin Time 16.1 H 12.2-14.7 SEC INR Comment 1.2 0.8-1.4 Activated Partial Thromboplast Time 26 24-35 SEC D-Dimer 1.01 H 0.00-0.49 UG/ML (ANGÉLICA GALVEZ MD) Vital Signs/I&O 10/20/21 10/20/21 16:15 20:25 Temp 36.1 Pulse 100 85 Resp 20 18 B/P (MAP) 142/90 (107) 130/68 Pulse Ox 97 97 (ANGÉLICA GALVEZ MD) Blood Pressure Mean: 107 Departure Communication (Admissions) EKG shows sinus rhythm at [address] segment change no ectopy. Family Conversation Hi NAME: APOLONIA ADAMS [facility] REC#: [id number] PT STATUS: REG ER : 1970 PHYSICIAN: TRUDI AGUILAR APRN ADMIT DATE: 10/20/21/ER Signed Date of Exam:10/20/21 CHEST 1 VIEW, AP/PA ONLY INDICATION: Hypertension Frontal chest obtained at 04:58 p.m. and compared to 04/29/2021 Heart and mediastinal silhouette are normal in appearance. The lungs are clear. There is no pneumothorax or pleural fluid. IMPRESSION: Negative chest. Dictated by: Dictated on workstation # [id number] Dict: 10/20/211653 Trans: 10/20/21 [address] [facility] [id number] Interpreted by: NIURKA TYLER MD Electronically signed by: NIURKA TYLER MD 10/20/211658 (TRUDI AGUILAR APRN) Impression Primary Impression: HTN (hypertension) Disposition: HOME, SELF-CARE Condition: Stable Departure-Patient Inst. Decision time for Depature: 19:55 (TRUDI AGUILAR APRN) Referrals: [facility] (PCP/Family) Primary Care Physician Patient Instructions: NO INSTRUCTIONS GIVEN Add. Discharge Instructions: 1. We would expect your Covid results to be back by tomorrow evening. Return to ER for any concerns. Follow-up with your doctor next week. All discharge instructions reviewed with patient and/or family. Voiced und erstanding. ATTENDING PHYSICIAN NOTE: I was physically present as attending physician in the emergency department during the care of this patient, but I was not directly involved in the decision making or delivery of care for this patient. (ANGÉLICA GALVEZ MD) TRUDI AGUILAR APRN Oct 20, 2021 17:09 ANGÉLICA GALVEZ MD Oct 21, 2021 18:13
[2021-10-20] MEDS ORDERED: PROCHLORPERAZINE 10 MG/2ML INJ (COMPAZINE) IV ONE (17:15)
[2021-10-20] MEDS ORDERED: diphenhydrAMINE 50 MG/ML INJ (BENADRYL) IVP ONE (17:15)
[2021-10-20] MEDS ORDERED: KETOROLAC 30 MG/ML VIAL IVP ONE (17:15)
[2021-10-20] MEDS ORDERED: hydrALAZINE (APESOLINE) 20 MG/ML VIAL IV ONE (18:45)
[2021-10-20 18:46] LABS: INR 1.2 (0.8-1.4); PROTHROMBIN TIME PATIENT 16.1 SEC (12.2-14.7)
[2021-10-20] MEDS ORDERED: IOHEXOL 350 MG/ML 100 ML (OMNIPAQUE 350) VIAL IV ONE (19:15)
[2021-10-20] MEDS ORDERED: NS 100 ML (IVPB) BAG IV ONE (19:15)
[2021-10-20] MEDS ORDERED: HOLD METFORMIN - RECEIVED CONTRAST 20 ML VIAL IV SCH (19:15)
--- NOTE | 2021-10-20 19:45 | Diagnostic Imaging Report ---
PROCEDURE: CT angiography of the chest with contrast. TECHNIQUE: Multiple contiguous axial images were obtained through the chest after uneventful bolus administration of intravenous contrast. 3D reconstructed CTA MIP acquisitions were also performed. Auto Exposure Controls were utilized during the CT exam to meet ALARA standards for radiation dose reduction. INDICATION: Chest pain. Migraines. Elevated D-dimer. COMPARISON: 12/15/2013. FINDINGS: This helical CT pulmonary angiogram is suboptimal. No large central pulmonary embolism is seen. The heart and great vessels are unremarkable. There is no pericardial effusion. There is no axillary, mediastinal or hilar adenopathy. The lungs demonstrate no consolidation, nodules or other parenchymal abnormality. No pleural effusion is seen. Osseous structures appear normal. Limited views of the upper abdomen are unremarkable. IMPRESSION: No acute pulmonary embolus. Negative CT chest. Dictated by: Dictated on workstation # [id number]
[2021-10-20 20:25] VITALS: BP 130/68
== END 2021-10-20 20:30 | disposition home or self-care (01) ==
LOC: EDUNIT# 16:04 → ER 16:05
DX: I10 Essential (primary) hypertension (principal); J44.9 Chronic obstructive pulmonary disease, unspecified; F41.9 Anxiety disorder, unspecified; F32.9 Major depressive disorder, single episode, unspecified; E11.9 Type 2 diabetes mellitus without complications; Z79.899 Other long term (current) drug therapy
CPT/HCPCS: 36415; 71045; 71275; 80053; 83735; 83874; 83880; 84484; 85025; 85379; 85610; 85730; 93005; 93041

== ENCOUNTER 2022-03-01 07:05 | Emergency (ER) | payer OTHER ==
[~2022-03-01] VITALS: Ht 160 cm; Wt 102.1 kg
[2022-03-01] MEDS ORDERED: BACITRACIN OINTMENT 28 GM TUBE TOP STA (07:20)
--- NOTE | 2022-03-01 07:23 | ED Trauma-Burn/Chemical Inh ---
HPI-Trauma Burn/Chemical Inh General Chief Complaint: Trauma-Non Activation Stated Complaint: BURN TO LEFT HAND Source: patient Exam Limitations: no limitations History of Present Illness Date Seen by Provider: Mar 01, 2022 Time Seen by Provider: 07:15 Initial Comments Here with 2 x 2 centimeter burn/blister to the left index finger radial side after touching hot caramel while cooking. Patient had blister that subsequently popped. She was at work when this occurred. They sent her here for further evaluation. Denies other injury or concerns. Patient does have history of hypertension and has not taken her blood pressure medicines this morning. She denies any complaint from that. Occurred: this morning (Approximately 0530) Burn Type: Thermal Burn Severity: mild Pain/Injury Location: upper extremity (Left index finger) Loss of Consciousness: no loss of consciousness Associated Symptoms (Fall): No Chest Pain Allergies and Home Medications Allergies Coded Allergies: No Known Drug Allergies (Verified , 09/02/07) Patient Home Medication List Home Medication List Reviewed: Yes Albuterol Sulfate (Proair Hfa) 1 Puff Puff, 2 PUFF IH Q4H PRN for WHEEZING Prescribed by: NELL CARPIO on 05/29/20 1819 Amlodipine Besylate (Norvasc Tablet) 10 Mg Tablet, 10 MG PO DAILY, (Reported) Entered as Reported by: NATHEN RIOS on 02/28/13 1639 Carvedilol (Carvedilol) 6.25 Mg Tablet, 6.25 MG PO BID, (Reported) Entered as Reported by: CARMELITA MILLER on 09/17/19 1409 Clonidine HCl (Clonidine HCl) 0.2 Mg Tablet, 0.2 MG PO BID Prescribed by: TRUDI AGUILAR on 09/17/19 1529 Hctz/Lisinopril (Lisinopril-Hctz 20-25MG Tab) 1 Tab Tablet, 1 TAB PO DAILY, (Reported) Entered as Reported by: NATHEN RIOS on 04/03/12 1404 Hydralazine HCl (Hydralazine HCl) 10 Mg Tablet, 10 MG PO TID PRN for BLOOD PRESSURE Prescribed by: GALLO LINDSAY on 04/29/21 0355 Hydroxyzine Hcl (Hydroxyzine 50 Mg Tablet) 50 Mg Tablet, 50 MG PO TID, (Reported) Entered as Reported by: DEENA VALVERDE on 05/19/14 1035 Naproxen (Naproxen) 500 Mg Tablet.dr, 500 MG PO BID Prescribed by: GALLO LINDSAY on 04/29/21 0355 Ondansetron (Ondansetron Odt) 4 Mg Tab.rapdis, 4 MG PO Q6H PRN for NAUSEA/VOMITING Prescribed by: NELL CARPIO on 05/29/20 1819 Sertraline HCl (Sertraline HCl) 50 Mg Tablet, 50 MG PO, (Reported) Entered as Reported by: CARMELITA MILLER on 09/17/19 1410 Review of Systems Review of Systems Constitutional: No chills, No fever Cardiovascular: Denies Chest Pain, Denies Edema Skin: see HPI, change in color, lesions Past Wkynteg-Tmyiin-Xfephz Hx Patient Social History Tobacco Use?: No Immunizations Up To Date Tetanus Booster (TDap): More than 5yrs First/Initial COVID19 Vaccinat: 01/23/21 Second COVID19 Vaccination Lloyd: 02/27/21 Seasonal Allergies Seasonal Allergies: Yes Past Medical History Surgery/Hospitalization HX: MIGRAINES, HTN, CROHNS, UC, ANXIETY, DEPRESSION, MS, Surgeries: Yes (HIATAL HERNIA REPAIR, DENTAL SX, KNEE, ANKLE) Abdominal, Orthopedic, Tonsillectomy, Tubal Ligation Respiratory: Yes COPD Cardiac: Yes Hypertension Neurological: Yes Headaches /Migraines, Multiple Sclerosis 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 Disorders: No Female 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 Disorders: Denies 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 ORTHO SURGERIES) Fractures Endocrine: No Diabetes, Non-Insulin dep Cancer: No Psychosocial: Yes Anxiety, Depression Integumentary: No Blood Disorders: No Adverse Reaction/Blood Tranf: No Family Medical History Reviewed Nursing Family Hx Family history: Cardiovascular disease 03 FATHER GRANDPARENTS Family history: Diabetes mellitus GRANDPARENTS Heart disease 03 FATHER GRANDPARENTS Cancer, CAD Under 55 Years Old, Diabetes, Hypertension, Seizures Physical Exam-Burn/Chemical In Physical Exam Vital Signs Vital Signs - First Documented 03/01/22 07:11 Temp 35.9 Pulse 72 Resp 18 B/P (MAP) 209/133 (158) O2 Delivery Room Air Capillary Refill : Height, Weight, BMI Height: 5'3" Weight: 240lbs. 0.0oz. 108.119515jj; 38.00 BMI Method:Stated General Appearance: WD/WN, no apparent distress Cardiovascular: regular rate, rhythm, no murmur Respiratory: lungs clear, normal breath sounds Neurologic/Psychiatric: alert, oriented x 3 Skin: warm/dry, other (2 x 2 centimeter blistered lesion on radial aspect of left index finger just distal to the MCP. Not circumferential. Mild swelling noted locally.) [place] Coma Score Best Eye Response ([place]): (4) Open Spontaneously Best Verbal Response ([place]): (5) Oriented Best Motor Response ([place]): (6) Obeys Commands Progress/Results/Core Measures Results/Orders My Orders Orders - TC BARR MD Bacitracin Ointment (Bacitracin Ointment (03/01/22 07:20) Dipht,Pertuss(Acell),Tet Adult (Boostrix (03/01/22 07:30) Medications Given in ED Current Medications Medications Dose Ordered Sig/Laz Route Start Time Stop Time Status Last Admin Dose Admin Diphtheria/ Tetanus/Acell Pertussis 0.5 ml ONCE ONCE IM 03/01/22 07:30 03/01/22 07:31 DC 03/01/22 07:29 0.5 ML Vital Signs/I&O 03/01/22 07:11 Temp 35.9 Pulse 72 Resp 18 B/P (MAP) 209/133 (158) O2 Delivery Room Air Progress Progress Note : Progress Note Seen and evaluated. Tetanus updated. Local wound care with bacitracin ointment and dressing provided. Declined pain medicine. Alcohol form completed. Discharged home with return precautions. Patient verbalized understanding instructions and agreement with plan. Departure Impression Primary Impression: Partial thickness burn of left index finger Disposition: 01 HOME, SELF-CARE Condition: Stable Departure-Patient Inst. Decision time for Depature: 07:26 Referrals: [facility] (PCP/Family) Primary Care Physician JONO WALTER MD Patient Instructions: Skin Lee Add. Discharge Instructions: All discharge instructions reviewed with patient and/or family. Voiced understanding. Clean wound once or twice daily and reapply bacitracin ointment for the next 4 to 7 days and then as needed. You may follow-up with your doctor, the emergency department or with Dr. Walter for wound recheck. Follow-up with occupational health as needed. Return for worse pain, swelling, red streaks up the hand or arm, foul-smelling drainage or other concerns as needed. You should take your blood pressure medicines this morning. Stay on those as directed. You may use [id number] Tylenol/acetaminophen and/or ibuprofen/naproxen per package directions. TC BARR MD Mar 01, 2022 07:22
[2022-03-01] MEDS ORDERED: TETANUS,DIPTH,PERTUSS P/F (BOOSTRIX) 0.5 ML VIAL IM ONE (07:30)
[2022-03-01 07:50] VITALS: BP 228/111
== END 2022-03-01 07:50 | disposition home or self-care (01) ==
LOC: EDUNIT# 07:05 → ER 07:06 → ER FS 07:50
DX: T23.222A Burn of second degree of single left finger (nail) except thumb, initial encounter (principal); I10 Essential (primary) hypertension; Z23 Encounter for immunization; Z79.899 Other long term (current) drug therapy; Z91.14 Patient's other noncompliance with medication regimen; X10.1XXA Contact with hot food, initial encounter; Y92.59 Other trade areas as the place of occurrence of the external cause; Y93.G3 Activity, cooking and baking; Y99.0 Civilian activity done for income or pay
CPT/HCPCS: 90715; 99284

== ENCOUNTER 2022-06-19 07:45 | Observation (INO) | payer SELFPAY ==
[~2022-06-19] VITALS: Ht 160 cm; Wt 99.6 kg
[~2022-06-19 07:45] MED LIST changes: +ALBU8.5H6 IH; -RT-ALBUINH IH
[2022-06-19] MEDS ORDERED: NITROGLYCERIN 2% OINT 1 GM UNIT DOSE PACKET TOP ONE (08:00)
[2022-06-19 08:11] LABS: BASOPHILS % (AUTO) 0 % (0-10); EOSINOPHILS # (AUTO) 0.1 10^3/uL (0.0-0.3); EOSINOPHILS % (AUTO) 2 % (0-10); HEMATOCRIT 44 % (35-52); HEMOGLOBIN 13.4 g/dL (11.5-16.0); LYMPHOCYTES # (AUTO) 1.4 10^3/uL (1.0-4.0); LYMPHOCYTES % (AUTO) 21 % (12-44); MEAN CORPUSCULAR HEMOGLOBIN 24 pg (25-34); MEAN CORPUSCULAR HGB CONC 30 g/dL (32-36); MEAN CORPUSCULAR VOLUME 80 fL (80-99); MEAN PLATELET VOLUME 12.2 fL (9.0-12.2); MONOCYTES # (AUTO) 0.4 10^3/uL (0.0-1.0); MONOCYTES % (AUTO) 7 % (0-12); NEUTROPHILS # (AUTO) 4.4 10^3/uL (1.8-7.8); NEUTROPHILS % (AUTO) 69 % (42-75); PLATELET COUNT 215 10^3/uL (130-400); WHITE BLOOD COUNT 6.4 10^3/uL (4.3-11.0)
[2022-06-19 08:23] LABS: ALBUMIN 4.3 GM/DL (3.2-4.5)
[2022-06-19 08:24] LABS: CHLORIDE 105 MMOL/L (98-107); SODIUM 142 MMOL/L (135-145)
[2022-06-19 08:25] LABS: CALCIUM 9.3 MG/DL (8.5-10.1); INR 1.1 (0.8-1.4); PROTHROMBIN TIME PATIENT 14.5 SEC (12.2-14.7)
[2022-06-19 08:26] LABS: GLUCOSE 136 MG/DL (70-105); TOTAL PROTEIN 8.1 GM/DL (6.4-8.2)
[2022-06-19 08:27] LABS: CARBON DIOXIDE 23 MMOL/L (21-32)
[2022-06-19 08:28] LABS: BILIRUBIN,TOTAL 0.6 MG/DL (0.1-1.0)
[2022-06-19 08:29] LABS: ALKALINE PHOSPHATASE 62 U/L (40-136)
[2022-06-19 08:30] LABS: CREATININE SERUM 0.89 MG/DL (0.60-1.30); GFR ESTIMATED 78
[2022-06-19 08:31] LABS: BUN/CREATININE RATIO 13
[2022-06-19 08:33] LABS: ALANINE AMINOTRANSFERASE 12 U/L (0-55)
[2022-06-19 08:52] LABS: TSH (THYROID ANALYZER) 0.88 UIU/ML (0.35-4.94)
--- NOTE | 2022-06-19 08:55 | Diagnostic Imaging Report ---
EXAMINATION: Chest 1 view HISTORY: Chest pain. COMPARISON: 10/20/2021 FINDINGS: The lungs are clear without edema or pneumonia. No pleural effusion or pneumothorax. Heart size is normal. IMPRESSION: 1. Clear lungs. Dictated by: Dictated on workstation # [id number]
[2022-06-19] MEDS: niCARdipine IV (Pyxis drip kit 50 MG in NS (IVPB) 230 ML IV SCH ×2 (11:00→20:53)
--- NOTE | 2022-06-19 11:02 | ED Chest Pain ---
General Chief Complaint: Chest Pain Stated Complaint: CHEST PAIN Nursing Triage Note: PT PRESENTS TO ED VIA EMS FROM WORK WITH COMPLAINTS OF CP AND SOA STARTING AROUND 0700 THIS AM. PT RECIEVED 2 NITRO AND 324 MG ASA IN ROUTE PER EMS. Source: patient, EMS, old records Exam Limitations: no limitations History of Present Illness Date Seen by Provider: Jun 19, 2022 Time Seen by Provider: 07:50 Initial Comments 51-year-old woman presents to the emergency room via EMS after having a syncopal episode and associated chest pain, shortness of breath, and severe hypertension. Patient started work this morning at 0400. At approximately 0700 she abruptly developed chest pain, shortness of breath, and lightheadedness. She sat down she was unresponsive for about 10 minutes and had labored breathing. No seizure-like activity was reported. Blood pressure for EMS was in the 220/120 range with a sinus rhythm in the 90s. She was given aspirin and nitroglycerin x2. She still has some lingering chest discomfort and states it feels difficult to breathe. She is not in any distress. Nitro paste was applied shortly after arrival with some improvement in blood pressure. Lowest blood pressure on the monitor at the time of interview was 167/104. She reports being out of her blood pressure medications for about the past 6 weeks. She has been unable to get them refilled stating her provider, Teri Goldman, left the clinic. She does not have her appointment to establish with a new provider until July and she has not been able to get her medications filled in the meantime. She sh ows me a list of medications that include clonidine 0.2 mg twice daily, amlodipine 10 mg daily, lisinopril/hydrochlorothiazide 20-25 daily, and carvedilol 25 mg twice daily. She denies any cough, fever, change in taste or smell, nausea, vomiting, or diarrhea. She has headache and feels a little lightheaded at this time. She denies ever undergoing formal cardiac evaluation. She reports history of Crohn's disease and ulcerative colitis as well as some type of genetic disorder, the name of which she cannot recall. Allergies and Home Medications Allergies Coded Allergies: No Known Drug Allergies (Verified , 09/02/07) Patient Home Medication List Home Medication List Reviewed: Yes Amlodipine Besylate (Amlodipine Besylate) 10 Mg Tablet, 10 MG PO DAILY, (Reported) Entered as Reported by: MAGGIE CHANDLER on 06/19/221531 Last Action: Reviewed Carvedilol (Carvedilol) 25 Mg Tablet, 25 MG PO BID, (Reported) Entered as Reported by: MAGGIE CHANDLER on 06/19/221531 Last Action: Reviewed Clonidine HCl (Clonidine HCl) 0.2 Mg Tablet, 0.2 MG PO BID, (Reported) Entered as Reported by: MAGGIE CHANDLER on 06/19/221531 Last Action: Reviewed Ferrous Sulfate (Iron) 325 Mg (65 Mg Iron) Tablet, 325 MG PO DAILY, (Reported) Entered as Reported by: MAGGIE CHANDLER on 06/19/221531 Last Action: Reviewed Lisinopril/Hydrochlorothiazide (Lisinopril-Hctz 20-25 mg Tab) 20 Mg-25 Mg Tablet, 1 EACH PO DAILY, (Reported) Entered as Reported by: MAGGIE CHANDLER on 06/19/221531 Last Action: Reviewed Discontinued Medications Albuterol Sulfate (Proair Hfa) 1 Puff Puff, 2 PUFF IH Q4H PRN for WHEEZING Discontinued Reason: No Longer Taking Prescribed by: NELL CARPIO on 05/29/201818 Last Action: Discontinued Carvedilol (Carvedilol) 6.25 Mg Tablet, 6.25 MG PO BID, (Reported) Discontinued Reason: Prescription changed Entered as Reported by: CARMELITA MILLER on 09/17/191408 Last Action: Continued Clonidine HCl (Clonidine HCl) 0.2 Mg Tablet, 0.2 MG PO BID Discontinued Reason: Duplicate Order Prescribed by: TRUDI AGUILAR on 09/17/19 152 Last Action: Discontinued Hctz/Lisinopril (Lisinopril-Hctz 20-25MG Tab) 1 Tab Tablet, 1 TAB PO DAILY, (Reported) Discontinued Reason: Prescription changed Entered as Reported by: NATHEN RIOS on 04/03/12 140 Last Action: Converted Hydralazine HCl (Hydralazine HCl) 10 Mg Tablet, 10 MG PO TID PRN for BLOOD PRESSURE Discontinued Reason: No Longer Taking Prescribed by: GALLO LINDSAY on 04/29/21 5677 Last Action: Discontinued Hydroxyzine Hcl (Hydroxyzine 50 Mg Tablet) 50 Mg Tablet, 50 MG PO TID, (Reported) Discontinued Reason: No Longer Taking Entered as Reported by: DEENA VALVERDE on 05/19/14 1035 Last Action: Discontinued Naproxen (Naproxen) 500 Mg Tablet.dr, 500 MG PO BID Discontinued Reason: No Longer Taking Prescribed by: GALLO LINDSAY on 04/29/21 0355 Last Action: Discontinued Ondansetron (Ondansetron Odt) 4 Mg Tab.rapdis, 4 MG PO Q6H PRN for NAUSEA /VOMITING Discontinued Reason: No Longer Taking Prescribed by: NELL CARPIO on 05/29/20 1819 Last Action: Discontinued Sertraline HCl (Sertraline HCl) 50 Mg Tablet, 50 MG PO, (Reported) Discontinued Reason: No Longer Taking Entered as Reported by: CARMELITA MILLER on 09/17/19 1410 Last Action: Discontinued Review of Systems Review of Systems Constitutional: no symptoms reported EENTM: No Symptoms Reported Respiratory: See HPI Cardiovascular: See HPI Gastrointestinal: No Symptoms Reported Genitourinary: No Symptoms Reported Musculoskeletal: no symptoms reported Skin: no symptoms reported Psychiatric/Neurological: No Symptoms Reported Endocrine: No Symptoms Reported Hematologic/Lymphatic: No Symptoms Reported Past Hewcknr-Tganvn-Blxqsg Hx Patient Social History Tobacco Use?: No Use of E-Cig and/or Vaping dev: No Substance use?: No Alcohol Use?: Yes Alcohol Frequency: Rarely Pt feels they are or have been: No Immunizations Up To Date Tetanus Booster (TDap): More than 5yrs First/Initial COVID19 Vaccinat: 01/23/21 Second COVID19 Vaccination Lloyd: 02/27/21 Third COVID19 Vaccination Date: 01/23/21 Seasonal Allergies Seasonal Allergies: Yes Past Medical History Surgery/Hospitalization HX: MIGRAINES, HTN, CROHNS, UC, ANXIETY, DEPRESSION, MS, Surgeries: Yes (HIATAL HERNIA REPAIR, DENTAL SX, KNEE, ANKLE) Abdominal (Multiple endoscopies), Orthopedic (Right ankle, knee x2), Tonsillectomy, Tubal Ligation Respiratory: Yes COPD Cardiac: Yes Hypertension Neurological: Yes Headaches /Migraines, Multiple Sclerosis 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 Disorders: No Female 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 Disorders: Denies SQE History: Tubal Ligation Sexually Transmitted Disease: No HIV/AIDS: No Genitourinary: Yes UTI-Chronic Gastrointestinal: Yes Colitis (Ulcerative colitis), Gastroesophageal Reflux, Crohns Disease, Hiatal Hernia Musculoskeletal: Yes (MULTIPLE FX, MS . ORTHO SURGERIES) Arthritis, Fractures Endocrine: No Diabetes, Non-Insulin dep Cancer: No Psychosocial: Yes Anxiety, Depression Integumentary: No Blood Disorders: No Adverse Reaction/Blood Tranf: No Family Medical History Family history: Cardiovascular disease 03 FATHER GRANDPARENTS Family history: Diabetes mellitus GRANDPARENTS Heart disease 03 FATHER GRANDPARENTS Cancer, CAD Under 55 Years Old, Diabetes, Hypertension, Seizures Physical Exam Vital Signs Vital Signs - First Documented 06/19/22 07:45 Temp 36.4 Pulse 89 Resp 16 B/P (MAP) 183/99 (127) Pulse Ox 95 Capillary Refill : Less Than 3 Seconds Height, Weight, BMI Height: 5'3" Weight: 240lbs. 0.0oz. [id number]; 39.00 BMI Method:Stated General Appearance: No Apparent Distress, WD/WN HEENT: PERRL/EOMI, Normal ENT Inspection Neck: Normal Inspection; No JVD Respiratory: Lungs Clear, Normal Breath Sounds, No Accessory Muscle Use, No Respiratory Distress, Other (Anterior chest wall tender to palpation) Cardiovascular: Regular Rate, Rhythm, No Edema, No Murmur Gastrointestinal: Normal Bowel Sounds, Non Tender, Soft Extremity: Normal Inspection, No Pedal Edema Neurologic/Psychiatric: Alert, Oriented x3, No Motor/Sensory Deficits, Normal Mood/Affect Skin: Normal Color, Warm/Dry Progress/Results/Core Measures Results/Orders Lab Results Laboratory Tests Test 06/19/22 07:55 06/19/22 09:32 Range/Units White Blood Count 6.4 4.3-11.0 10^3/uL Red Blood Count 5.58 H 3.80-5.11 10^6/uL Hemoglobin 13.4 11.5-16.0 g/dL Hematocrit 44 35-52 % Mean Corpuscular Volume 80 80-99 fL Mean Corpuscular Hemoglobin 24 L 25-34 pg Mean Corpuscular Hemoglobin Concent 30 L 32-36 g/dL Red Cell Distribution Width 15.0 H 10.0-14.5 % Platelet Count 215 130-400 10^3/uL Mean Platelet Volume 12.2 9.0-12.2 fL Immature Granulocyte % (Auto) 0 % Neutrophils (%) (Auto) 69 42-75 % Lymphocytes (%) (Auto) 21 12-44 % Monocytes (%) (Auto) 7 0-12 % Eosinophils (%) (Auto) 2 0-10 % Basophils (%) (Auto) 0 0-10 % Neutrophils # (Auto) 4.4 1.8-7.8 10^3/uL Lymphocytes # (Auto) 1.4 1.0-4.0 10^3/uL Monocytes # (Auto) 0.4 0.0-1.0 10^3/uL Eosinophils # (Auto) 0.1 0.0-0.3 10^3/uL Basophils # (Auto) 0.0 0.0-0.1 10^3/uL Immature Granulocyte # (Auto) 0.0 0.0-0.1 10^3/uL Prothrombin Time 14.5 12.2-14.7 SEC INR Comment 1.1 0.8-1.4 Activated Partial Thromboplast Time 29 24-35 SEC Sodium Level 142 135-145 MMOL/L Potassium Level 4.0 3.6-5.0 MMOL/L Chloride Level 105 98-107 MMOL/L Carbon Dioxide Level 23 21-32 MMOL/L Anion Gap 14 5-14 MMOL/L Blood Urea Nitrogen 12 7-18 MG/DL Creatinine 0.89 0.60-1.30 MG/DL Estimat Glomerular Filtration Rate 78 BUN/Creatinine Ratio 13 Glucose Level 136 H 70-105 MG/DL Calcium Level 9.3 8.5-10.1 MG/DL Corrected Calcium 9.1 8.5-10.1 MG/DL Magnesium Level 1.9 1.6-2.4 MG/DL Total Bilirubin 0.6 0.1-1.0 MG/DL Aspartate Amino Transf (AST/SGOT) 16 5-34 U/L Alanine Aminotransferase (ALT/SGPT) 12 0-55 U/L Alkaline Phosphatase 62 40-136 U/L Myoglobin 46.4 10.0-92.0 NG/ML Troponin I < 0.028 <0.028 NG/ML B-Type Natriuretic Peptide 55.2 <100.0 PG/ML Total Protein 8.1 6.4-8.2 GM/DL Albumin 4.3 3.2-4.5 GM/DL TSH [place] Testing 0.88 0.35-4.94 UIU/ML Influenza Type A (RT-PCR) Not Detected Not Detecte Influenza Type B (RT-PCR) Not Detected Not Detecte SARS-CoV-2 RNA (RT-PCR) Not Detected Not Detecte My Orders Orders - ANGÉLICA GALVEZ MD Ekg Tracing (06/19/22 07:49) Comprehensive Metabolic Panel (06/19/22 07:49) Troponin I Sandi (06/19/22 07:49) Myoglobin Serum (06/19/22 07:49) Chest 1 View, Ap/Pa Only (06/19/22 07:49) Ed Iv/Invasive Line Start (06/19/22 07:49) Nitroglycerin Ointment (Nitrobid Ointme (06/19/22 08:00) Cbc With Automated Diff (06/19/22 08:00) Magnesium (06/19/22 08:00) Protime With Inr (06/19/22 08:00) Partial Thromboplastin Time (06/19/22 08:00) O2 (06/19/22 08:00) Monitor-Rhythm Ecg Trace Only (06/19/22 08:00) Lipid Panel (06/20/22 06:00) Thyroid Analyzer (06/19/22 08:04) Bnp Sandi (06/19/22 08:36) Covid 19 Inhouse Test (06/19/22 09:32) Influenza A And B By Pcr (06/19/22 09:32) Ns (Ivpb) (Sodium C... W/Nicardipine Iv (06/19/22 10:45) Code/Resuscitation (06/19/22 11:21) Ed Admission (Communication) (06/19/22 11:25) Medications Given in ED Current Medications Medications Dose Ordered Sig/Laz Route Start Time Stop Time Status Last Admin Dose Admin Nitroglycerin 1 inch ONCE ONCE TOP 06/19/22 08:00 06/19/22 14:01 DC 06/19/22 08:37 1 INCH Vital Signs/I&O 06/19/22 06/19/22 07:45 11:00 Temp 36.4 Pulse 89 60 Resp 16 B/P (MAP) 183/99 (127) 213/124 Pulse Ox 95 Blood Pressure Mean: 127 Progress Progress Note : Time: 11:23 Progress Note Work-up was grossly unremarkable. Patient still had some lingering chest pain and shortness of breath. She had received aspirin by EMS. Nitroglycerin x2 did improve her blood pressure and symptoms. Nitro paste was applied after arrival to the ER. She rebounded her hypertension and eventually achieved systolic blood pressures greater than 220 again despite the Nitropaste. A Cardene drip was then ordered. Patient is agreeable to admission. We discussed CODE STATUS and she wishes to remain full code. Dr. Rodarte was consulted for cardiology evaluation. Dr. Kelly is the attending physician and is agreeable to admission. She is placing the admission orders. Initial ECG Impression Date: Jun 19, 2022 Initial ECG Impression Time: 07:50 Initial ECG Rate: 90 Initial ECG Rhythm: Normal Sinus Comment Sinus rhythm with no ST elevation or depression. No abnormal intervals. LVH noted. Diagnostic Imaging Diagonstic Imaging: Xray Plain Films/CT/US/NM/MRI: chest Comments NAME: [facility] REC#: [id number] PT STATUS: REG ER : 1970 PHYSICIAN: ANGÉLICA GALVEZ MD ADMIT DATE: 06/19/22/ER Draft Date of Exam:06/19/22 CHEST 1 VIEW, AP/PA ONLY EXAMINATION: Chest 1 view HISTORY: Chest pain. COMPARISON: 10/20/2021 FINDINGS: The lungs are clear without edema or pneumonia. No pleural effusion or pneumothorax. Heart size is normal. IMPRESSION: 1. Clear lungs. Dictated on workstation # [id number] Dict: 06/19/22 0854 Trans: 06/19/22 0854 [id number] Interpreted by: GUY HIGGINS MD Departure Communication (Admissions) Time/Spoke to Admitting Phy: 11:17 Dr. Kelly Time/Spoke to Consulting Phy: 11:15 Dr. Rodarte Impression Primary Impression: Hypertensive urgency Additional Impressions: Syncope Qualified Codes: R55 - Syncope and collapse Chest pain Qualified Codes: R07.9 - Chest pain, unspecified Disposition: ADMITTED INPATIENT Condition: Stable Admissions Decision to Admit Reason: Admit from ER (General) Decision to Admit/Date: Jun 19, 2022 Time/Decision to Admit Time: 11:15 Departure-Patient Inst. Referrals: [facility] [place]) Primary Care Physician TERI GOLDMAN (Family) Primary Care Physician Copy Copies To 1: [facility]/ANGÉLICA CHENG MD Jun 19, 2022 11:02
[2022-06-19] MEDS ORDERED: NS IV 500 ML 500 ML IV PRN (12:00)
[2022-06-19 12:16] VITALS: BP 187/99
[2022-06-19] MEDS ORDERED: cloNIDine 0.2 MG (CATAPRES) TAB ONE (13:41)
[2022-06-19] MEDS ORDERED: IBUPROFEN 600 MG (MOTRIN) TAB PO PRN (13:45)
[2022-06-19] MEDS: ACETAMINOPHEN 325 MG TABLET PO PRN (13:47)
--- NOTE | 2022-06-19 13:56 | Consultation-Cardiology ---
HPI-Cardiology Cardiology Consultation: Date of Consultation 06/19/22 Date of Admission 06/19/22 Attending Physician [facility] Admitting Physician Admitting Physician: Sonia Kelly MD Attending Physician: Sonia Kelly MD Consulting Physician TERI CHANG JR, MD HPI: Time Seen by a Provider: 13:00 Chief Complaint: REASON FOR CONSULTATION: Chest pain, syncope and hypertensive urgency. I had the pleasure of seeing Padmini in the intensive care unit at [facility] in [place], [place] today. She has no known history of coronary artery disease. She does have a history of difficult to control hypertension and has been taking 4 antihypertensive medications in addition to hydralazine which she takes as needed although does not frequently need to take this. Early last month in April 2022, she ran out of refills on her medication. She called over to the office of her primary provider and that person had left the practice. She asked for refills from her new primary provider but was told she would need to be seen first before they would send any refills to the pharmacy. She is supposed to see that person in June but ran out of her medications and the beginning of April. Since that time, her blood pressure has been gradually creeping upwards. Earlier today she was at work and felt some tightness in her chest and shortness of breath. The next thing she can remember, she was laying on the floor and EMS was at her side. Apparently, she had a syncopal spell and a coworker called 911. She was then brought to the emergency room for further evaluation. She was found to be markedly hypertensive and was started on Nitropaste and then a nicardipine infusion and admitted to the intensive care unit. When I saw her in the intensive care unit, her chest discomfort and shortness of breath had essentially subsided. She denies any previous history of syncope. She denies paroxysmal nocturnal dyspnea, orthopnea, palpitations, or lightheadedness. She does get some mild ankle edema from time to time but believes this is due to standing for long hours at work. Because of the chest pain, syncope and hypertensive urgency, a cardiology consultation was requested. Certain portions of this document may have been dictated utilizing voice recognition technology. Inherent to this technology, typographical and grammati red errors may exist. As much as I am diligent to identify and correct these mistakes, some errors may remain in the document. Review of Systems-Cardiology Review of Systems Other comments Review of 10 organ systems is as per the history of present illness, otherwise negative. MTY-Tftekf-Mdbvfk Hx Patient Social History Smoking Status: Former Smoker Have you traveled recently?: No Alcohol Use?: No Pt feels they are or have been: No Immunizations Up To Date Tetanus Booster (TDap): More than 5yrs Date of Pneumonia Vaccine: Nov 21, 2013 Date of Influenza Vaccine: Jul 24, 2013 Past Medical History PMH As described under Assessment. Family Medical History Family Medical History: Her father had a myocardial infarction but she is not sure what age and he later from cancer. Family History: Family history: Cardiovascular disease 03 FATHER GRANDPARENTS Family history: Diabetes mellitus GRANDPARENTS Heart disease 03 FATHER GRANDPARENTS Allergies and Home Medications Allergies Coded Allergies: No Known Drug Allergies (Verified , 09/02/07) Patient Home Medication List Home Medication List Reviewed: Yes Albuterol Sulfate (Proair Hfa) 1 Puff Puff, 2 PUFF IH Q4H PRN for WHEEZING Prescribed by: NELL CARPIO on 05/29/20 1819 Last Action: Reviewed Amlodipine Besylate (Norvasc Tablet) 10 Mg Tablet, 10 MG PO DAILY, (Reported) Entered as Reported by: NATHEN RIOS on 02/28/13 1639 Last Action: Continued Carvedilol (Carvedilol) 6.25 Mg Tablet, 6.25 MG PO BID, (Reported) Entered as Reported by: CARMELITA MILLER on 09/17/19 1409 Last Action: Continued Clonidine HCl (Clonidine HCl) 0.2 Mg Tablet, 0.2 MG PO BID Prescribed by: TRUDI AGUILAR on 09/17/19 1529 Last Action: Continued Hctz/Lisinopril (Lisinopril-Hctz 20-25MG Tab) 1 Tab Tablet, 1 TAB PO DAILY, (Reported) Entered as Reported by: NATHEN RIOS on 04/03/12 1404 Last Action: Converted Hydralazine HCl (Hydralazine HCl) 10 Mg Tablet, 10 MG PO TID PRN for BLOOD PRESSURE Prescribed by: GALLO LINDSAY on 04/29/21 4985 Last Action: Held Hydroxyzine Hcl (Hydroxyzine 50 Mg Tablet) 50 Mg Tablet, 50 MG PO TID, (Reported) Entered as Reported by: DEENA VALVERDE on 05/19/14 1035 Last Action: Held Ondansetron (Ondansetron Odt) 4 Mg Tab.rapdis, 4 MG PO Q6H PRN for NAUSEA/VOMITING Prescribed by: NELL CARPIO on 05/29/20 1819 Last Action: Reviewed Discontinued Medications Naproxen (Naproxen) 500 Mg Tablet.dr, 500 MG PO BID Discontinued Reason: No Longer Taking Prescribed by: GALLO LINDSAY on 04/29/21 0355 Last Action: Discontinued Sertraline HCl (Sertraline HCl) 50 Mg Tablet, 50 MG PO, (Reported) Discontinued Reason: No Longer Taking Entered as Reported by: CARMELITA MILLER on 09/17/19 1410 Last Action: Discontinued Exam Vital Signs Vital Signs Date Time Temp Pulse Resp B/P (MAP) Pulse Ox O2 Delivery O2 Flow Rate FiO2 06/19/22 12:47 87 06/19/22 12:45 22 179/94 (122) 94 Room Air 06/19/22 12:14 36.7 Physical Exam General: Alert. No acute distress. Well nourished and appears stated age. She is obese. Eye: Extraocular movements are intact. Conjunctivae are clear. There are no xanthelasma. HENT: Normocephalic. Atraumatic. Carotid pulsations 2/2 without bruits. Neck: Jugular venous pressure does not appear elevated. No thyromegaly appreciated. Respiratory: Lungs are clear to auscultation. Respirations are non-labored. Breath sounds are equal. Symmetrical chest wall expansion. Cardiovascular: Normal rate. Regular rhythm. No murmur. No gallop. Point of maximal impulse is not appear displaced. Good pulses equal in all extremities. No edema. Gastrointestinal: Soft. Normal bowel sounds. Skin: Skin turgor is normal. There is no pallor. Musculoskeletal: No kyphosis or scoliosis appreciated. Neurologic: Alert and oriented to person, place, time. Cranial nerves 3-12 appear grossly intact. The patient has good motor tone strength in the upper and lower extremities bilaterally. Psychiatric: Cooperative. Appropriate mood & affect. Labs Laboratory Tests Test 06/19/22 07:55 06/19/22 09:32 06/19/22 13:35 Range/Units White Blood Count 6.4 4.3-11.0 10^3/uL Red Blood Count 5.58 H 3.80-5.11 10^6/uL Hemoglobin 13.4 11.5-16.0 g/dL Hematocrit 44 35-52 % Mean Corpuscular Volume 80 80-99 fL Mean Corpuscular Hemoglobin 24 L 25-34 pg Mean Corpuscular Hemoglobin Concent 30 L 32-36 g/dL Red Cell Distribution Width 15.0 H 10.0-14.5 % Platelet Count 215 130-400 10^3/uL Mean Platelet Volume 12.2 9.0-12.2 fL Immature Granulocyte % (Auto) 0 % Neutrophils (%) (Auto) 69 42-75 % Lymphocytes (%) (Auto) 21 12-44 % Monocytes (%) (Auto) 7 0-12 % Eosinophils (%) (Auto) 2 0-10 % Basophils (%) (Auto) 0 0-10 % Neutrophils # (Auto) 4.4 1.8-7.8 10^3/uL Lymphocytes # (Auto) 1.4 1.0-4.0 10^3/uL Monocytes # (Auto) 0.4 0.0-1.0 10^3/uL Eosinophils # (Auto) 0.1 0.0-0.3 10^3/uL Basophils # (Auto) 0.0 0.0-0.1 10^3/uL Immature Granulocyte # (Auto) 0.0 0.0-0.1 10^3/uL Prothrombin Time 14.5 12.2-14.7 SEC INR Comment 1.1 0.8-1.4 Activated Partial Thromboplast Time 29 24-35 SEC Sodium Level 142 135-145 MMOL/L Potassium Level 4.0 3.6-5.0 MMOL/L Chloride Level 105 98-107 MMOL/L Carbon Dioxide Level 23 21-32 MMOL/L Anion Gap 14 5-14 MMOL/L Blood Urea Nitrogen 12 7-18 MG/DL Creatinine 0.89 0.60-1.30 MG/DL Estimat Glomerular Filtration Rate 78 BUN/Creatinine Ratio 13 Glucose Level 136 H 70-105 MG/DL Calcium Level 9.3 8.5-10.1 MG/DL Corrected Calcium 9.1 8.5-10.1 MG/DL Magnesium Level 1.9 1.6-2.4 MG/DL Total Bilirubin 0.6 0.1-1.0 MG/DL Aspartate Amino Transf (AST/SGOT) 16 5-34 U/L Alanine Aminotransferase (ALT/SGPT) 12 0-55 U/L Alkaline Phosphatase 62 40-136 U/L Myoglobin 46.4 10.0-92.0 NG/ML Troponin I < 0.028 <0.028 NG/ML B-Type Natriuretic Peptide 55.2 <100.0 PG/ML Total Protein 8.1 6.4-8.2 GM/DL Albumin 4.3 3.2-4.5 GM/DL TSH [place] Testing 0.88 0.35-4.94 UIU/ML Influenza Type A (RT-PCR) Not Detected Not Detecte Influenza Type B (RT-PCR) Not Detected Not Detecte SARS-CoV-2 RNA (RT-PCR) Not Detected Not Detecte ECG Impression ECG Comment Electrocardiogram from earlier today in the emergency room shows sinus rhythm with left atrial abnormality and probable left ventricular hypertrophy. Diagnosis/Problems Diagnosis/Problems (1) Syncope Status: Acute Assessment & Plan: Exact etiology unclear. There is no evidence of Ycizj-Ktswndbyj-Ftzgz, Brugada syndrome, or prolonged or short QT on her resting electrocardiogram. Unclear whether or not this could be related to the hypertensive urgency. I would not suspect intracranial hemorrhage or ischemic stroke but I do think it would be worth having her undergo a head CT. She should continue on telemetry monitoring. We may need to consider external cardiac monitoring following discharge. I have also ordered an echocardiogram to be done while she is here in the hospital. (2) Chest pain Status: Acute Assessment & Plan: As with the syncope, the etiology of the chest pain is unclear. Her troponin level was undetectable and she does not have any evidence of a prior infarct or ischemia at rest on her electrocardiogram. At some point, we may want to consider an ischemic evaluation but this could certainly be done following discharge assuming she does not have ongoing chest pain. If she has recurrent chest discomfort, I would consider giving her a GI cocktail to see if this might help with the chest discomfort. (3) Hypertensive urgency Status: Acute Assessment & Plan: I have resumed all of her outpatient antihypertensive medication and asked the nurse to give her doses today. We will then attempt to wean off the nicardipine infusion. (4) Obesity Status: Chronic Assessment & Plan: She needs to work on weight loss. She has been counseled in this regard. Problem Qualifiers (1) Syncope: Syncope type: unspecified Qualified Codes: R55 - Syncope and collapse (2) Chest pain: Chest pain type: unspecified Qualified Codes: R07.9 - Chest pain, unspecified TERI CHANG JR, MD Jun 19, 2022 13:56
[2022-06-19] MEDS ORDERED: cloNIDine 0.2 MG (CATAPRES) TAB PO NR (14:00)
--- NOTE | 2022-06-19 14:52 | Diagnostic Imaging Report ---
PROCEDURE: CT head wo r/o stroke. TECHNIQUE: Multiple contiguous axial images were obtained through the brain without the use of intravenous contrast. Auto Exposure Controls were utilized during the CT exam to meet ALARA standards for radiation dose reduction. INDICATION: Syncope. Correlation is made with head CT from 02/03/2021. Ventricles and sulci are within normal limits. There is no sulcal effacement or midline shift. No acute intra-axial or extra-axial hemorrhage is detected. Cisterns are patent. Visualized paranasal sinuses are clear. IMPRESSION: No acute intracranial process is detected. Dictated by: Dictated on workstation # [id number]
[2022-06-19] MEDS ORDERED: FERR-84 PO (15:32)
[2022-06-19] MEDS ORDERED: CLN.2T PO (15:32)
[2022-06-19] MEDS ORDERED: AMLO-251 PO (15:32)
[2022-06-19] MEDS ORDERED: LISI1TAB48 PO (15:32)
[2022-06-19] MEDS ORDERED: CARV25TA PO (15:32)
--- NOTE | 2022-06-19 16:55 | Tele-ICU Progress Note ---
Progress Note Video assessment done , Hemodynamically stable Available charting reviewed, discussed with RN NO TELE-ICU CONSULT REQUESTED CONTINUE TO MONITOR PER USUAL TELE-ICU PROTOCOL No need for Tele-ICU interventions Plans as delineated by bedside physicians / consultants Focused Exam Height, Weight, BMI Height: 5'3" Weight: 240lbs. 0.0oz. 108.223582eg; 39.06 BMI Method:Stated ARIANE COFFEY MD Jun 19, 2022 16:55
[2022-06-19] MEDS ORDERED: IBUPROFEN 600 MG (MOTRIN) TAB PO SCH (18:00)
[2022-06-19] MEDS: cloNIDine 0.2 MG (CATAPRES) TAB PO SCH (20:39)
[2022-06-20 05:21] LABS: BASOPHILS % (AUTO) 1 % (0-10); EOSINOPHILS # (AUTO) 0.2 10^3/uL (0.0-0.3); EOSINOPHILS % (AUTO) 3 % (0-10); HEMATOCRIT 39 % (35-52); HEMOGLOBIN 11.9 g/dL (11.5-16.0); LYMPHOCYTES # (AUTO) 1.4 10^3/uL (1.0-4.0); LYMPHOCYTES % (AUTO) 22 % (12-44); MEAN CORPUSCULAR HEMOGLOBIN 24 pg (25-34); MEAN CORPUSCULAR HGB CONC 31 g/dL (32-36); MEAN CORPUSCULAR VOLUME 79 fL (80-99); MEAN PLATELET VOLUME 11.7 fL (9.0-12.2); MONOCYTES # (AUTO) 0.6 10^3/uL (0.0-1.0); MONOCYTES % (AUTO) 9 % (0-12); NEUTROPHILS # (AUTO) 4.3 10^3/uL (1.8-7.8); NEUTROPHILS % (AUTO) 66 % (42-75); PLATELET COUNT 228 10^3/uL (130-400); WHITE BLOOD COUNT 6.6 10^3/uL (4.3-11.0)
[2022-06-20 05:39] LABS: ALBUMIN 3.7 GM/DL (3.2-4.5); POTASSIUM 4.2 MMOL/L (3.6-5.0)
[2022-06-20 05:40] LABS: CALCIUM 9.1 MG/DL (8.5-10.1)
[2022-06-20 05:42] LABS: TOTAL PROTEIN 6.8 GM/DL (6.4-8.2)
[2022-06-20 05:44] LABS: BILIRUBIN,TOTAL 0.7 MG/DL (0.1-1.0)
[2022-06-20 05:45] LABS: CREATININE SERUM 0.86 MG/DL (0.60-1.30); PHOSPHORUS 4.3 MG/DL (2.3-4.7)
[2022-06-20] MEDS: niCARdipine IV (Pyxis drip kit 50 MG in NS (IVPB) 230 ML IV SCH (05:53)
[2022-06-20] MEDS ORDERED: POTASSIUM CL 10MEQ/50ML IVPB 50 ML IV SCH (06:00)
[2022-06-20] MEDS ORDERED: MAGNESIUM 1 GM/100 ML IVPB 100 ML IV SCH (06:00)
[2022-06-20] MEDS ORDERED: KCL 20 MEQ TAB (K-DUR) PO SCH (06:00)
[2022-06-20] MEDS: cloNIDine 0.2 MG (CATAPRES) TAB PO SCH (08:46)
[2022-06-20] MEDS: ACETAMINOPHEN 325 MG TABLET PO PRN (08:54)
[2022-06-20] MEDS ORDERED: LISINOPRIL PO SCH (09:00)
[2022-06-20] MEDS ORDERED: amLODIPine 10 MG (NORVASC) TAB PO SCH (09:00)
[2022-06-20] MEDS ORDERED: lisINopril 20 MG (PRINIVIL) TABLET PO SCH (09:00)
[2022-06-20] MEDS ORDERED: HCTZ PO SCH (09:00)
--- NOTE | 2022-06-20 09:01 | Cardiology Progress Note ---
Progress Note-Cardiology Events since last exam Date Seen by Provider: Jun 20, 2022 Time Seen by Provider: 09:00 Events since last exam I am following her due to syncope, chest pain and hypertensive urgency. She remains in the intensive care unit. Last evening she was weaned off the nicardipine infusion. She does get some shortness of breath if she has a headache but denies any significant shortness of breath at rest laying in bed. Her chest discomfort seems to have resolved. She denies palpitations, recurrent syncope, or ankle edema. Certain portions of this document may have been dictated utilizing voice recognition technology. Inherent to this technology, typographical and grammatical errors may exist. As much as I am diligent to identify and correct these mistakes, some errors may remain in the document. Vitals Last set of Vitals Signs Vital Signs 06/20/22 06/20/22 08:00 09:00 Temp 36.4 Pulse 50 Resp 20 B/P (MAP) 164/92 (116) Pulse Ox 96 O2 Delivery Room Air Labs Labs Laboratory Tests 06/20/22 04:20 Exam Vital Signs Vital Signs Date Time Temp Pulse Resp B/P (MAP) Pulse Ox O2 Delivery O2 Flow Rate FiO2 06/20/22 09:00 50 20 164/92 (116) 96 Room Air 06/20/22 08:00 36.4 Physical Exam General: Alert. No acute distress. She is obese. Eye: No xanthelasma. HENT: Normocephalic. Neck: Jugular venous pressure does not appear elevated. Respiratory: Lungs are clear to auscultation. Respirations are non-labored. Breath sounds are equal. Symmetrical chest wall expansion. Cardiovascular: Normal rate. Regular rhythm. No murmur. No gallop. No edema. Gastrointestinal: Soft. Normal bowel sounds. Skin: Warm. Dry. Neurologic: Alert and oriented to person, place, time. Cranial nerves 3-11 grossly intact. Psychiatric: Cooperative. Appropriate mood & affect. Labs Laboratory Tests Test 06/19/22 13:35 06/20/22 04:20 Range/Units Troponin I < 0.028 <0.028 NG/ML White Blood Count 6.6 4.3-11.0 10^3/uL Red Blood Count 4.88 3.80-5.11 10^6/uL Hemoglobin 11.9 11.5-16.0 g/dL Hematocrit 39 35-52 % Mean Corpuscular Volume 79 L 80-99 fL Mean Corpuscular Hemoglobin 24 L 25-34 pg Mean Corpuscular Hemoglobin Concent 31 L 32-36 g/dL Red Cell Distribution Width 15.2 H 10.0-14.5 % Platelet Count 228 130-400 10^3/uL Mean Platelet Volume 11.7 9.0-12.2 fL Immature Granulocyte % (Auto) 1 % Neutrophils (%) (Auto) 66 42-75 % Lymphocytes (%) (Auto) 22 12-44 % Monocytes (%) (Auto) 9 0-12 % Eosinophils (%) (Auto) 3 0-10 % Basophils (%) (Auto) 1 0-10 % Neutrophils # (Auto) 4.3 1.8-7.8 10^3/uL Lymphocytes # (Auto) 1.4 1.0-4.0 10^3/uL Monocytes # (Auto) 0.6 0.0-1.0 10^3/uL Eosinophils # (Auto) 0.2 0.0-0.3 10^3/uL Basophils # (Auto) 0.0 0.0-0.1 10^3/uL Immature Granulocyte # (Auto) 0.0 0.0-0.1 10^3/uL Sodium Level 139 135-145 MMOL/L Potassium Level 4.2 3.6-5.0 MMOL/L Chloride Level 102 98-107 MMOL/L Carbon Dioxide Level 23 21-32 MMOL/L Anion Gap 14 5-14 MMOL/L Blood Urea Nitrogen 18 7-18 MG/DL Creatinine 0.86 0.60-1.30 MG/DL Estimat Glomerular Filtration Rate 82 BUN/Creatinine Ratio 21 Glucose Level 118 H 70-105 MG/DL Calcium Level 9.1 8.5-10.1 MG/DL Corrected Calcium 9.3 8.5-10.1 MG/DL Phosphorus Level 4.3 2.3-4.7 MG/DL Magnesium Level 2.0 1.6-2.4 MG/DL Total Bilirubin 0.7 0.1-1.0 MG/DL Aspartate Amino Transf (AST/SGOT) 12 5-34 U/L Alanine Aminotransferase (ALT/SGPT) 10 0-55 U/L Alkaline Phosphatase 49 40-136 U/L Total Protein 6.8 6.4-8.2 GM/DL Albumin 3.7 3.2-4.5 GM/DL Triglycerides Level 61 <150 MG/DL Cholesterol Level 146 < 200 MG/DL LDL Cholesterol Direct 93 1-129 MG/DL VLDL Cholesterol 12 5-40 MG/DL HDL Cholesterol 44 40-60 MG/DL Radiology ECHOCARDIOGRAM (06/19/2022): 1. This is a technically difficult study due to poor image quality secondary to patient's body habitus. Intravenous contrast was administered to enhance image quality. 2. Left ventricle: The cavity size is normal. There is severe concentric hypertrophy. Systolic function is normal. The estimated ejection fraction is 60- 65%. There were no regional wall motion abnormalities identified. Doppler parameters are consistent with abnormal left ventricular relaxation (grade 1 diastolic dysfunction). 3. Pulmonary arteries: The estimated pulmonary artery systolic pressure is 27 mmHg assuming a right atrial pressure of 5 mmHg. Diagnosis/Problems Diagnosis/Problems (1) Syncope Status: Acute Assessment & Plan: Exact etiology unclear. There is no evidence of Awjzy-Nfkmxrsmv-Gxupj, Brugada syndrome, or prolonged or short QT on her resting electrocardiogram. Unclear whether or not this could be related to the hypertensive urgency. Her echocardiogram showed a normal ejection fraction with no significant structural heart disease that would predispose to syncope other than severe concentric left ventricular hypertrophy but this does not necessarily appear to be hypertrophic cardiomyopathy. I had her undergo a head CT on 06/19 and this did not show any acute intracranial abnormality that would explain syncope. She should continue on telemetry monitoring while she is here in the hospital. We may need to consider external cardiac monitoring following discharge. (2) Chest pain Status: Acute Assessment & Plan: As with the syncope, the etiology of the chest pain is unclear. Her troponin level was undetectable and she does not have any evidence of a prior infarct or ischemia at rest on her electrocardiogram. At some point, we may want to consider an ischemic evaluation but this could certainly be done following discharge assuming she does not have ongoing chest pain. If she has recurrent chest discomfort, I would consider giving her a GI cocktail to see if this might help with the chest discomfort. Her echocardiogram showed a normal ejection fraction with no wall motion abnormalities. (3) Hypertensive urgency Status: Acute Assessment & Plan: I have resumed all of her outpatient antihypertensive medication. She has been weaned off the nicardipine infusion and she has been reasonably well controlled on her outpatient oral medication. (4) Obesity Status: Chronic Assessment & Plan: She needs to work on weight loss. She has been counseled in this regard. Problem Qualifiers (1) Syncope: Syncope type: unspecified Qualified Codes: R55 - Syncope and collapse (2) Chest pain: Chest pain type: unspecified Qualified Codes: R07.9 - Chest pain, unspecified TERI CHANG JR, MD Jun 20, 2022 09:01
[2022-06-20] MEDS ORDERED: AMLO-251 PO (10:57)
[2022-06-20] MEDS ORDERED: CARV25TA PO (10:57)
[2022-06-20] MEDS ORDERED: CLN.2T PO (10:57)
[2022-06-20] MEDS ORDERED: LISI1TAB48 PO (10:57)
--- NOTE | 2022-06-20 10:58 | Discharge Summary ---
Discharge [facility] Reconcile Patient Problems Problems Reviewed?: Yes Discharge Medications New, Converted or Re-Newed RX: Transmitted to Pharmacy Continued Medications: Amlodipine Besylate (Amlodipine Besylate) 10 Mg Tablet 10 MG PO DAILY, #30 TAB (This prescription has been renewed) LAST FILLED 11-23-2021 #90/90 DAY SUPPLY Carvedilol (Carvedilol) 25 Mg Tablet 25 MG PO BID, #60 TAB (This prescription has been renewed) LAST FILLED 11-23-2021 #180/90 DAY SUPPLY Clonidine HCl (Clonidine HCl) 0.2 Mg Tablet 0.2 MG PO BID, #60 TAB (This prescription has been renewed) LAST FILLED 11-23-2021 #180/90 DAY SUPPLY Lisinopril/Hydrochlorothiazide (Lisinopril-Hctz 20-25 mg Tab) 20 Mg-25 Mg Tablet 1 EACH PO DAILY, #30 TAB (This prescription has been renewed) LAST FILLED 11-23-2021 #90/90 DAY SUPPLY Discontinued Medications: Ferrous Sulfate (Iron) 325 Mg (65 Mg Iron) Tablet 325 MG PO DAILY, TAB Patient Instructions Goal/Follow Up Appt: Appt with PCP 1-2 weeks Patient Instructions: Make sure to picker box operator your medications Activity & Diet Discharge Diet: Cardiac Diet Activity as Tolerated: Yes Orders-Post D/C & Referrals - Patient needs to be set up with documentation specialist and needs stress testing done, Dr Rodarte saw patient in the hospital JOI SOTO MD Jun 20, 2022 10:58
--- NOTE | 2022-06-20 11:00 | Short Stay Summary ---
MARIA ELENA MCNAIR 06/20/22 1100: HPI History of Present Illness: Patient is a 51 yo F admitted for chest pain, syncope, and hypertensive urgency. She experienced a syncopal episode at work yesterday, and was found to be markedly hypertensive in the ED with EMS blood pressure reading of 220/120. She was treated with nicardipine and nitropaste and admitted to the ICU. History of difficult to control hypertension and has been without her BP meds for the last six weeks after her provider moved away. Today the patient states that she is feeling much better. Denies chest pain, nausea or vomiting, changes in vision, dysuria, or difficulties urinating. Indicates mild SOB and headaches. Source: patient, RN/MD, EMS Exam Limitations: no limitations Date seen by provider: Jun 20, 2022 Time Seen by Provider: 08:30 Attending Physician [facility] PCP Admitting Physician: Joi Soto MD Attending Physician: Joi Soto MD Consult Date of Admission Jun 19, 2022 at 11:27 Home Medications Home Medications Reviewed patient Home Medication Reconciliation performed by pharmacy medication reconciliations sand technician and/or nursing. Patients Allergies have been reviewed. Allergies Coded Allergies: No Known Drug Allergies (Verified , 09/02/07) SVH-Ywbgxv-Ygildf Hx Patient Social History Employed/Student: employed Smoking Status: Former Smoker Recent Hopitalizations: Yes (FX BONES,CHILD ,PNEUMONIA) Alcohol Use?: No Have you traveled recently?: No Immunizations Up To Date Tetanus Booster (TDap): More than 5yrs First/Initial COVID19 Vaccinat: 01/23/21 Second COVID19 Vaccination Lloyd: 02/27/21 Third COVID19 Vaccination Date: 01/23/21 Past Medical History Med hx: Hypertension Migraines Crohn's Disease Ulcerative Colitis Anxiety Depression MS Surg hx: Tonsillectomy Dental surg Hiatal hernia repair Multiple abdominal endoscopies Tubal ligation Orthopedic surg (right ankle, knee x2) Family Medical History Significant Family History: Cancer, CAD Under 55 Years Old, Diabetes, Hypertension, Seizures Family History: Family history: Cardiovascular disease 03 FATHER GRANDPARENTS Family history: Diabetes mellitus GRANDPARENTS Heart disease 03 FATHER GRANDPARENTS Review of Systems ([facility]) Constitutional: see HPI; No dizziness, No weakness EENTM: no symptoms reported; No blurred vision, No double vision, No vision loss Respiratory: No cough; short of breath Cardiovascular: no symptoms reported; No chest pain, No palpitations Gastrointestinal: no symptoms reported Genitourinary: no symptoms reported, see HPI; No decreased output, No dysuria Musculoskeletal: no symptoms reported Skin: no symptoms reported Psychiatric/Neurological: No Symptoms Reported Reviewed Test Results Reviewed Test Results Lab Labs mostly unremarkable. Troponins were within normal range. MCV - 79 MCH - 24 MCHC - 31 RDW - 15.2 Radiology Date of Exam:06/19/22 CT HEAD WO-R/O STROKE PROCEDURE: CT head wo r/o stroke. TECHNIQUE: Multiple contiguous axial images were obtained through the brain without the use of intravenous contrast. Auto Exposure Controls were utilized during the CT exam to meet ALARA standards for radiation dose reduction. INDICATION: Syncope. Correlation is made with head CT from 02/03/2021. Ventricles and sulci are within normal limits. There is no sulcal effacement or midline shift. No acute intra-axial or extra-axial hemorrhage is detected. Cisterns are patent. Visualized paranasal sinuses are clear. IMPRESSION: No acute intracranial process is detected. Dictated by: Dictated on workstation # [id number] Dict: 06/19/22 1447 Trans: 06/19/227 [facility], [place] [id number] Interpreted by: COLIN ARSHAD MD Electronically signed by: COLIN ARSHAD MD 06/19/221716 Date of Exam:06/19/22 CHEST 1 VIEW, AP/PA ONLY EXAMINATION: Chest 1 view HISTORY: Chest pain. COMPARISON: 10/20/2021 FINDINGS: The lungs are clear without edema or pneumonia. No pleural effusion or pneumothorax. Heart size is normal. IMPRESSION: 1. Clear lungs. Dictated by: Dictated on workstation # [id number] Dict: 06/19/22 0854 Trans: 06/19/221715 [id number] Interpreted by: GUY HIGGINS MD Electronically signed by: GUY HIGGINS MD 06/19/226 Physical Exam-([facility]) Physical Exam Vital Signs VS - Last 72 Hours, by Label 06/19/22 06/19/22 06/19/22 06/19/22 07:45 11:00 12:09 12:14 Temp 36.4 36.7 Pulse 89 60 79 74 Resp 16 18 B/P (MAP) 183/99 (127) 213/124 186/104 (131) Pulse Ox 95 96 O2 Delivery Room Air 06/19/22 06/19/22 06/19/22 06/19/22 12:15 12:16 12:30 12:45 Pulse 86 90 79 90 Resp 21 18 16 22 B/P (MAP) 162/89 (113) 187/99 174/92 (119) 179/94 (122) Pulse Ox 96 98 98 94 O2 Delivery Room Air Room Air Room Air 06/19/22 06/19/22 06/19/22 06/19/22 12:47 13:00 13:15 13:30 Pulse 87 71 93 85 Resp 20 13 25 B/P (MAP) 179/95 (123) 183/97 (125) 193/100 (131) Pulse Ox 96 96 95 O2 Delivery Room Air Room Air Room Air 06/19/22 06/19/22 06/19/22 06/19/22 13:45 14:00 15:00 15:45 Temp 36.6 Pulse 95 82 81 Resp 20 21 B/P (MAP) 187/107 (133) 156/84 (108) 145/78 (100) Pulse Ox 94 95 96 O2 Delivery Room Air Room Air Room Air 06/19/22 06/19/22 06/19/22 06/19/22 16:00 16:15 16:30 16:45 Pulse 71 69 75 77 Resp 18 18 19 19 B/P (MAP) 164/88 (113) 151/86 (107) 145/83 (103) 148/88 (108) Pulse Ox 91 90 90 90 O2 Delivery Room Air Room Air Room Air Room Air 06/19/22 06/19/22 06/19/22 06/19/22 17:00 18:00 19:00 19:00 Pulse 67 71 68 68 Resp 19 25 19 B/P (MAP) 141/79 (99) 135/71 (92) 106/62 (71) Pulse Ox 92 95 91 O2 Delivery Room Air Room Air Room Air 06/19/22 06/19/22 06/19/22 06/19/22 19:26 20:00 21:00 22:00 Temp 36.0 Pulse 72 60 60 Resp 19 21 19 B/P (MAP) 113/63 (77) 123/65 (84) 110/61 (73) Pulse Ox 93 96 93 O2 Delivery Room Air Room Air Room Air 06/19/22 06/20/22 06/20/22 06/20/22 23:00 00:00 00:00 01:00 Temp 36.3 Pulse 57 56 55 Resp 31 33 25 B/P (MAP) 116/66 (83) 123/70 (86) 117/66 (85) Pulse Ox 93 91 93 O2 Delivery Room Air Room Air Room Air 06/20/22 06/20/22 06/20/22 06/20/22 01:00 02:00 03:00 04:00 Pulse 55 55 55 56 Resp 22 15 30 B/P (MAP) 119/70 (86) 117/70 (87) 129/74 (92) Pulse Ox 95 93 93 O2 Delivery Room Air Room Air Room Air 06/20/22 06/20/22 06/20/22 06/20/22 04:29 05:00 06:00 07:00 Temp 36.4 Pulse 52 51 52 Resp 24 17 21 B/P (MAP) 111/62 (75) 116/67 (83) 119/70 (86) Pulse Ox 95 94 95 O2 Delivery Room Air Room Air Room Air 06/20/22 06/20/22 06/20/22 06/20/22 07:02 08:00 08:00 09:00 Temp 36.4 Pulse 53 50 50 Resp 18 20 B/P (MAP) 123/68 (86) 164/92 (116) Pulse Ox 94 96 O2 Delivery Room Air Room Air Capillary Refill : Less Than 3 Seconds Temperature (Fahrenheit): 97.5 General Appearance: WD/WN, no apparent distress Neck: non-tender, supple, normal inspection; No carotid bruit Respiratory: chest non-tender, lungs clear, normal breath sounds, no respiratory distress, no accessory muscle use Cardiovascular: normal peripheral pulses, regular rate, rhythm, no edema, no gallop, no JVD, no murmur Peripheral Pulses: 3+ Carotid (R), 3+ Carotid (L), 3+ Radial Pulses (R), 3+ Radial Pulses (L) Gastrointestinal: normal bowel sounds, non tender, soft, no organomegaly, no pulsatile mass Extremities: normal range of motion, non-tender, normal inspection, normal capillary refill Neurologic/Psychiatric: no motor/sensory deficits, alert, normal mood/affect, oriented x 3 Skin: normal color, warm/dry Lymphatic: no adenopathy Short Stay Diagnosis Discharge Diagnosis-Short Stay Admission Diagnosis Hypertensive urgency Syncope Chest pain Final Discharge Diagnosis Hypertensive urgency - resolved Syncope - resolved Chest pain - resolved Conclusion Plan As indicated in A/P, BP medications to be refilled on discharge, patient to follow-up with PCP, as well as be referred to cardiology for management of BP and stress testing. Was the Problem List Reviewed?: Yes Problem List (1) Syncope Qualifiers: Qualified Codes: R55 - Syncope and collapse Assessment & Plan: Exact etiology unclear. There is no evidence of Yewsr-Zeczchrzy-Cunkc, Brugada syndrome, or prolonged or short QT on her resting electrocardiogram. Unclear whether or not this could be related to the hypertensive urgency. Her echocardiogram showed a normal ejection fraction with no significant structural heart disease that would predispose to syncope other than severe concentric left ventricular hypertrophy but this does not necessarily appear to be hypertrophic cardiomyopathy. I had her undergo a head CT on 06/19 and this did not show any acute intracranial abnormality that would explain syncope. She should continue on telemetry monitoring while she is here in the hospital. We may need to consider external cardiac monitoring following discharge. Status: Acute (2) Chest pain Qualifiers: Qualified Codes: R07.9 - Chest pain, unspecified Assessment & Plan: As with the syncope, the etiology of the chest pain is unclear. Her troponin level was undetectable and she does not have any evidence of a prior infarct or ischemia at rest on her electrocardiogram. At some point, we may want to consider an ischemic evaluation but this could certainly be done following discharge assuming she does not have ongoing chest pain. If she has recurrent chest discomfort, I would consider giving her a GI cocktail to see if this might help with the chest discomfort. Her echocardiogram showed a normal ejection fraction with no wall motion abnormalities. Status: Acute (3) Hypertensive urgency Assessment & Plan: I have resumed all of her outpatient antihypertensive medication. She has been weaned off the nicardipine infusion and she has been reasonably well controlled on her outpatient oral medication. Status: Acute (4) Obesity Assessment & Plan: She needs to work on weight loss. She has been counseled in this regard. Status: Chronic Assessment/Plan Assessment/Plan Admission Dx Hypertensive urgency Admission Status: Observation Assessment & Plan Hypertensive urgency - clonidine 0.2 mg given yesterday at 2039. Nicardipine and nitroglycerin given in ED. Patient lisinopril, hydrochlorothiazide, amlodipine, carvedilol to be refilled on discharge from hospital. Syncope - resolved with treatment of BP Chest pain - resolved with treatment of BP All other chronic conditions - continue medical management as indicated by PCP and other providers. 07/16/22 1517: Home Medications Allergies Coded Allergies: No Known Drug Allergies (Verified , 09/02/07) AHC-Faagfd-Khgjic Hx Family Medical History Family History: Family history: Cardiovascular disease 03 FATHER GRANDPARENTS Family history: Diabetes mellitus GRANDPARENTS Heart disease 03 FATHER GRANDPARENTS JOI SOTO MD 08/06/22 1850: Supervisory-Addendum Brief Verification & Attestation Participated in pt care: history, physical Personally performed: exam, history Care discussed with: Medical Student Procedures: n/a Verification and Attestation of Medical Student E/M Service A medical student performed and documented this service in my presence. I reviewed and verified all information documented by the medical student and made modifications to such information, when appropriate. I personally performed the physical exam and medical decision making. Joi Soto, Jun 20, 2022,18:50 MARIA ELENA MCNAIR Jun 20, 2022 11:00 SHERMAN,SepJul 16, 2022 15:17 JOI SOTO MD Aug 06, 2022 18:50
== END 2022-06-20 10:55 | disposition home or self-care (01) ==
LOC: EDUNIT# 07:45 → ER 07:46 → ICU 11:27 → UNDOADMOB 11:27 → ICU 12:15 → UNDODISOB 06-20 10:55
PROVIDERS: ADMIT Family Medicine; ATTEND Family Medicine
DX: I16.0 Hypertensive urgency (principal); E66.9 Obesity, unspecified; Z87.891 Personal history of nicotine dependence; Z68.38 Body mass index [BMI] 38.0-38.9, adult
CPT/HCPCS: 70450; 71045; 80053 ×2; 80061; 83735 ×2; 83874; 83880; 84100; 84443; 84484; 85025 ×2; 85610; 85730; 87636; 93005; 93041; 96374; 99285; C8929; G0378; 36415; 93306

== ENCOUNTER → 2023-05-02 | Outpatient (CLI) | payer BC ==
[~2023-05-02] MED LIST changes: +AMLO-251 PO; +CARV25TA PO; +FERR-84 PO; +LISI1TAB48 PO
--- NOTE | 2023-05-02 10:03 | Diagnostic Imaging Report ---
Indication: Uncontrolled hypertension Renal Doppler ultrasound Duplex ultrasound of the kidneys is done with grayscale, spectral wave form analysis and color Doppler analysis. Right kidney measures 11.0 x 5.3 x 4.8 cm. Left kidney measures 12.0 x 5.5 x 4.7 cm. There is no mass, calculus or hydronephrosis in either kidney. Peak systolic velocities in the proximal mid and distal renal arteries appear normal bilaterally. The ratios between the renal and aortic peak systolic velocity ratios are within normal limits. IMPRESSION: Unremarkable kidneys. There is no sonographic evidence for renal artery stenosis. Dictated by: Dictated on workstation # [id number]
== END ==
LOC: RAD 07:52
PROVIDERS: ATTEND Internal Medicine Nephrology
DX: G47.30 Sleep apnea, unspecified (principal); I12.9 Hypertensive chronic kidney disease with stage 1 through stage 4 chronic kidney disease, or unspecified chronic kidney disease; N18.2 Chronic kidney disease, stage 2 (mild)
CPT/HCPCS: 76770; 93975

== ENCOUNTER 2023-06-30 17:33 | Emergency (ER) | payer BC ==
[~2023-06-30] VITALS: Ht 160 cm; Wt 104.3 kg
[2023-06-30 18:00] LABS: BASOPHILS % (AUTO) 0 % (0-10); EOSINOPHILS # (AUTO) 0.1 10^3/uL (0.0-0.3); EOSINOPHILS % (AUTO) 1 % (0-10); HEMATOCRIT 45 % (35-52); LYMPHOCYTES # (AUTO) 0.3 10^3/uL (1.0-4.0); LYMPHOCYTES % (AUTO) 4 % (12-44); MEAN CORPUSCULAR HEMOGLOBIN 24 pg (25-34); MEAN CORPUSCULAR HGB CONC 31 g/dL (32-36); MEAN CORPUSCULAR VOLUME 79 fL (80-99); MEAN PLATELET VOLUME 10.8 fL (9.0-12.2); MONOCYTES # (AUTO) 0.3 10^3/uL (0.0-1.0); MONOCYTES % (AUTO) 3 % (0-12); NEUTROPHILS # (AUTO) 8.1 10^3/uL (1.8-7.8); NEUTROPHILS % (AUTO) 92 % (42-75); PLATELET COUNT 253 10^3/uL (130-400); WHITE BLOOD COUNT 8.8 10^3/uL (4.3-11.0)
[2023-06-30] MEDS ORDERED: ASPIRIN 81 MG CHEWABLE TABLET PO ONE (18:00)
--- NOTE | 2023-06-30 18:05 | ED Chest Pain ---
General Chief Complaint: Chest Pain Stated Complaint: CHEST PAIN Nursing Triage Note: PT AMB TO RM 1 WITH C/O CP X4 DAYS AND INCREASED PAIN WITH BREATHING Source: patient Exam Limitations: no limitations History of Present Illness Date Seen by Provider: Jun 30, 2023 Time Seen by Provider: 17:46 Initial Comments 52-year-old female presents to the ER with reports of right-sided chest pain that has been constant for the last 4 days. She reports that she also has shortness of air. She states that the pain and shortness of air is constant, but worse with exertion. She points to one spot on the right side of her chest, states the pain does not radiate. She denies any nausea and vomiting with the pain, denies diaphoresis with the pain. She reports that the pain is worse when she takes a deep breath. She states that the pain is sometimes a squeezing pain, and sometimes it is a stabbing pain. Denies history of DVTs, denies calf pain, states she has chronic swelling in her lower legs, denies any change to this. She sees Dr. Novoa, cardiology for chest pain and hypertension. She states that her chest pain, that she sees Dr. Novoa for, is always on the right side in the same spot, denies any difference in this pain today. She had an echo in March 2023 which was normal. She says she is working on scheduling a stress test, she has not had one in the past. She does not smoke, has never smoked. She did grow up in a home with smokers. She does report that her father and grandfather both had 3 of heart attacks. Her past medical history includes multiple sclerosis, Crohn's disease, ulcerative colitis, hypertension, and depression. Allergies and Home Medications Allergies Coded Allergies: No Known Drug Allergies (Verified , 09/02/07) Patient Home Medication List Home Medication List Reviewed: Yes Amlodipine Besylate (Amlodipine Besylate) 10 Mg Tablet, 10 MG PO DAILY Prescribed by: JOI SOTO on 06/20/22 105 Carvedilol (Carvedilol) 25 Mg Tablet, 25 MG PO BID Prescribed by: JOI SOTO on 06/20/22 105 Clonidine HCl (Clonidine HCl) 0.2 Mg Tablet, 0.2 MG PO BID Prescribed by: JOI SOTO on 06/20/22 105 Lisinopril/Hydrochlorothiazide (Lisinopril-Hctz 20-25 mg Tab) 20 Mg-25 Mg Tablet, 1 EACH PO DAILY Prescribed by: JOI SOTO on 06/20/22 105 Review of Systems Review of Systems Constitutional: see HPI Past Rwnqxnn-Dysyjm-Izyspm Hx Patient Social History Tobacco Use?: No Use of E-Cig and/or Vaping dev: No Substance use?: No Alcohol Use?: No Pt feels they are or have been: No Immunizations Up To Date Tetanus Booster (TDap): More than 5yrs First/Initial COVID19 Vaccinat: 01/23/21 Second COVID19 Vaccination Lloyd: 02/27/21 Third COVID19 Vaccination Date: 01/23/21 Seasonal Allergies Seasonal Allergies: Yes Past Medical History Surgery/Hospitalization HX: MIGRAINES, HTN, CROHNS, UC, ANXIETY, DEPRESSION, MS, ARTHRITIS KNEE SURGERIES, ANKLE SURGERY, X2, TUBAL, HERNIA, TONSILS Surgeries: Yes (HIATAL HERNIA REPAIR, DENTAL SX, KNEE, ANKLE) Abdominal, Orthopedic, Tonsillectomy, Tubal Ligation Respiratory: Yes COPD Cardiac: Yes Hypertension Neurological: Yes Headaches /Migraines, Multiple Sclerosis 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 Disorders: No Female 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 Disorders: Denies [employer]ICIAN History: Tubal Ligation Sexually Transmitted Disease: No HIV/AIDS: No Genitourinary: Yes UTI-Chronic Gastrointestinal: Yes Colitis, Gastroesophageal Reflux, Crohns Disease, Hiatal Hernia Musculoskeletal: Yes (MULTIPLE FX, MS . ORTHO SURGERIES) Arthritis, Fractures Endocrine: No Diabetes, Non-Insulin dep Cancer: No Psychosocial: Yes Anxiety, Depression Integumentary: No Blood Disorders: No Adverse Reaction/Blood Tranf: No Family Medical History Family history: Cardiovascular disease 03 FATHER GRANDPARENTS Family history: Diabetes mellitus GRANDPARENTS Heart disease 03 FATHER GRANDPARENTS Cancer, CAD Under 55 Years Old, Diabetes, Hypertension, Seizures Physical Exam Vital Signs Vital Signs - First Documented 06/30/23 17:36 Temp 37.0 Pulse 116 Resp 16 B/P (MAP) 155/117 (130) Pulse Ox 94 O2 Delivery Room Air Capillary Refill : Height, Weight, BMI Height: 5'3" Weight: 240lbs. 0.0oz. [id number]; 40.00 BMI Method:Stated General Appearance: No Apparent Distress, WD/WN Neck: Normal Inspection, Supple Respiratory: Lungs Clear, Normal Breath Sounds, No Accessory Muscle Use, No Respiratory Distress, Other (Right chest very tender to palpation) Cardiovascular: Tachycardia Extremity: Normal Inspection, Normal Range of Motion, Non Tender, No Calf Tenderness, No Pedal Edema (Patient's legs are large, does not appear to be edema, likely related to body habitus) Neurologic/Psychiatric: Alert, No Motor/Sensory Deficits Skin: Normal Color, Warm/Dry Progress/Results/Core Measures Results/Orders Lab Results Laboratory Tests Test 06/30/23 17:50 06/30/23 18:06 06/30/23 19:44 06/30/23 20:32 Range/Units White Blood Count 8.8 4.3-11.0 10^3/uL Red Blood Count 5.75 H 3.80-5.11 10^6/uL Hemoglobin 14.0 11.5-16.0 g/dL Hematocrit 45 35-52 % Mean Corpuscular Volume 79 L 80-99 fL Mean Corpuscular Hemoglobin 24 L 25-34 pg Mean Corpuscular Hemoglobin Concent 31 L 32-36 g/dL Red Cell Distribution Width 15.2 H 10.0-14.5 % Platelet Count 253 130-400 10^3/uL Mean Platelet Volume 10.8 9.0-12.2 fL Immature Granulocyte % (Auto) 0 % Neutrophils (%) (Auto) 92 H 42-75 % Lymphocytes (%) (Auto) 4 L 12-44 % Monocytes (%) (Auto) 3 0-12 % Eosinophils (%) (Auto) 1 0-10 % Basophils (%) (Auto) 0 0-10 % Neutrophils # (Auto) 8.1 H 1.8-7.8 10^3/uL Lymphocytes # (Auto) 0.3 L 1.0-4.0 10^3/uL Monocytes # (Auto) 0.3 0.0-1.0 10^3/uL Eosinophils # (Auto) 0.1 0.0-0.3 10^3/uL Basophils # (Auto) 0.0 0.0-0.1 10^3/uL Immature Granulocyte # (Auto) 0.0 0.0-0.1 10^3/uL Neutrophils % (Manual) 92 % Lymphocytes % (Manual) 7 % Monocytes % (Manual) 0 % Eosinophils % (Manual) 1 % Basophils % (Manual) 0 % Band Neutrophils 0 % Blood Morphology Comment NORMAL Prothrombin Time 14.0 12.2-14.7 SEC INR Comment 1.1 0.8-1.4 Activated Partial Thromboplast Time 27 24-35 SEC Sodium Level 140 135-145 MMOL/L Potassium Level 4.0 3.6-5.0 MMOL/L Chloride Level 108 H 98-107 MMOL/L Carbon Dioxide Level 19 L 21-32 MMOL/L Anion Gap 13 5-14 MMOL/L Blood Urea Nitrogen 19 H 7-18 MG/DL Creatinine 0.83 0.60-1.30 MG/DL Estimat Glomerular Filtration Rate 85 BUN/Creatinine Ratio 23 Glucose Level 128 H 70-105 MG/DL Calcium Level 9.2 8.5-10.1 MG/DL Corrected Calcium 9.0 8.5-10.1 MG/DL Magnesium Level 1.8 1.6-2.4 MG/DL Total Bilirubin 0.7 0.1-1.0 MG/DL Aspartate Amino Transf (AST/SGOT) 13 5-34 U/L Alanine Aminotransferase (ALT/SGPT) 14 0-55 U/L Alkaline Phosphatase 68 40-136 U/L Troponin I < 0.028 < 0.028 <0.028 NG/ML Total Protein 8.0 6.4-8.2 GM/DL Albumin 4.2 3.2-4.5 GM/DL D-Dimer 1.49 H 0.00-0.49 UG/ML B-Type Natriuretic Peptide 34.3 <100.0 PG/ML Influenza Type A (RT-PCR) Not Detected Not Detecte Influenza Type B (RT-PCR) Not Detected Not Detecte SARS-CoV-2 RNA (RT-PCR) Not Detected Not Detecte My Orders Orders - SHERRIE BLAKE APRN Cbc And Automated Diff (06/30/23 17:46) Magnesium (06/30/23 17:46) Chest 1 View, Ap/Pa Only (06/30/23 17:46) Comprehensive Metabolic Panel (06/30/23 17:46) Protime With Inr (06/30/23 17:46) Partial Thromboplastin Time (06/30/23 17:46) Monitor-Rhythm Ecg Trace Only (06/30/23 17:46) Ed Iv/Invasive Line Start (06/30/23 17:46) Troponin I Sandi (06/30/23 17:46) Fibrin Degradation Products (06/30/23 17:59) Bnp [place] (06/30/23 17:59) Aspirin Chewable Tablet (Aspirin Chewabl (06/30/23 18:00) Nitroglycerin 0.4 Mg Btl 25's (Nitroglyc (06/30/23 18:15) Ns Iv 1000 Ml (Ns Iv 1000 Ml) (06/30/23 18:30) Manual Differential (06/30/23 17:50) Ct Angio Chest W (R/O Pe) (06/30/23 18:42) Iohexol Injection (Omnipaque 350 Mg/Ml 1 (06/30/23 19:00) Received Contrast (Hold Metformin- Contr (06/30/23 19:00) Ns (Ivpb) 100 Ml (Sodium Chloride 0.9% 1 (06/30/23 19:00) Covid 19 Inhouse Test (06/30/23 19:29) Influenza A And B By Pcr (06/30/23 19:29) Troponin I [place] (06/30/23 19:29) Ekg Tracing (06/30/23 19:29) Dexamethasone Injection (Dexamethasone (06/30/23 21:30) Medications Given in ED Current Medications Medications Dose Ordered Sig/Laz Route Start Time Stop Time Status Last Admin Dose Admin Aspirin 324 mg ONCE ONCE PO 06/30/23 18:00 06/30/23 18:03 DC 06/30/23 18:09 324 MG Dexamethasone Sodium Phosphate 10 mg ONCE ONCE IV 06/30/23 21:30 06/30/23 21:31 DC 06/30/23 21:30 10 MG Iohexol 100 ml ONCE ONCE IV 06/30/23 19:00 06/30/23 19:01 DC 06/30/23 19:06 85 ML Nitroglycerin 0.4 mg UD PRN SL 06/30/23 18:15 06/30/23 21:50 DC 06/30/23 18:09 0.4 MG Sodium Chloride 100 ml ONCE ONCE IV 06/30/23 19:00 06/30/23 19:01 DC 06/30/23 19:07 100 ML Vital Signs/I&O 06/30/23 06/30/23 17:36 21:47 Temp 37.0 37.0 Pulse 116 93 Resp 16 16 B/P (MAP) 155/117 (130) 161/99 Pulse Ox 94 94 O2 Delivery Room Air Room Air 07/01/23 00:00 Intake Total 1000 ml Balance 1000 ml Blood Pressure Mean: 130 Progress Progress Note : Progress Note Patient seen and evaluated, resting comfortably in bed, no acute distress. Based on exam and symptoms, work-up initiated included CBC, CMP, coags, troponin, magnesium EKG, chest x-ray, D-dimer, BNP. IV fluids ordered for tachycardia. Aspirin and nitroglycerin ordered. 1841 Labs and chest x-ray reviewed. CBC shows normal WBC, elevated neutrophil percentage 2. CMP shows slightly elevated chloride 108, decrease CO2 19. Troponin negative. Coags normal. D-dimer elevated 1.49. CT angio ordered for elevated D-dimer. Chest x-ray shows no acute cardiopulmonary process. Will do a 2-hour troponin and repeat EKG. 1928 CT reviewed. Negative for pulmonary embolism , no thoracic aneurysm or di ssection. Slightly low lung volumes with diffuse groundglass opacities which may be related to atelectasis but subtle superimposed infiltrate cannot be completely excluded. COVID and flu swab ordered. 2127 repeat troponin negative. Repeat EKG shows no changes from previous EKG. COVID and flu negative. Ground glass opacities may be related to history of secondhand smoke exposure, or a viral illness. I ordered a dose of Decadron to help reduce any possible inflammation. Patient instructed to follow-up with Dr. Novoa. Heart rate has improved. Blood pressure has been fluctuating. Patient has not taken her night dose of her blood pressure medication. Patient directed to take her dose when she gets home. Patient is stable for discharge. Discharge instructions and return precautions provided. Initial ECG Impression Date: Jun 30, 2023 Initial ECG Impression Time: 17:43 Initial ECG Rate: 112 Initial ECG Rhythm: S.Tach, PVC Initial ECG Intervals: Normal Initial ECG Impression: Nonspecific Changes (New T wave inversion in lead I and aVL) Initial ECG Comparisson: Changed Comment New T wave inversion in lead I and aVL. No significant Q waves or ST elevation. EKG : EKG Time: 21:01 Rate: 90 Rhythm: Normal Sinus Intervals: Normal ECG Comparisson: Unchanged ECG Impression: Nonspecific Changes Comment No change from previous EKG done today. Diagnostic Imaging Diagonstic Imaging: Xray Plain Films/CT/US/NM/MRI: chest Comments [facility] [place] NAME: APOLONIA ADAMS [facility] REC#: [id number] PT STATUS: REG ER : 1970 PHYSICIAN: SHERRIE BLAKE APRN ADMIT DATE: 06/30/23/ER Signed Date of Exam:06/30/23 CHEST 1 VIEW, AP/PA ONLY CLINICAL INDICATION: Patient with chest pain. EXAM: Portable chest x-ray, upright view. COMPARISON: Chest x-ray dated 06/19/2022. FINDINGS: Lungs/pleura: Lungs are clear. There is no pneumothorax. There is no pleural effusion. Mediastinum: Unremarkable. Pulmonary vasculature: Unremarkable. Heart: Unremarkable. Bones/extrathoracic soft tissue: Unremarkable. IMPRESSION: There is no radiographic evidence of acute cardiopulmonary process. Dictated by: Dictated on workstation # [id number] Dict: 06/30/231809 Trans: 06/30/231952 [id number] Interpreted by: LEONA SHELTON MD Electronically signed by: LEONA SHELTON MD 06/30/231952 Diagonstic Imaging: CT Plain Films/CT/US/NM/MRI: chest Comments [facility] [place] NAME: APOLONIA ADAMS [facility] REC#: [id number] PT STATUS: REG ER : 1970 PHYSICIAN: SHERRIE BLAKE APRN ADMIT DATE: 06/30/23/ER Signed Date of Exam:06/30/23 CT ANGIO CHEST W (R/O PE) CLINICAL INDICATION: Patient complains of chest pain x 4 days and increased pain with breathing. Rule out pulmonary aneurysm. EXAM: CT angiogram of the chest performed with 85 cc Omnipaque 350 IV contrast. Coronal and oblique MIP images of the vasculature were created to better evaluate anatomy. Auto Exposure Controls were utilized during the CT exam to meet ALARA standards for radiation dose reduction. COMPARISON: None. FINDINGS: There is no evidence of pulmonary embolism. There is no thoracic aortic dissection or aneurysm. There is slight volume loss involving the lungs and groundglass opacification throughout both lungs. There is increased groundglass opacification involving the posterior aspects of both lungs, likely related to atelectasis. Superimposed infiltrates in the areas of groundglass opacification cannot be completely excluded. There is no pleural effusion or pneumothorax. There is no mediastinal or axillary lymphadenopathy. Mediastinal structures and heart shows no significant abnormality. The visualized portions of the upper abdominal structures are unremarkable. Bone show no significant acute process. IMPRESSION: 1: There is no evidence of pulmonary embolism. There is no thoracic aortic aneurysm or dissection. 2: Slight low lung volumes are seen with diffuse groundglass opacification which may be related to atelectasis but subtle superimposed infiltrates cannot be complete excluded. Clinical correlation for infectious symptoms would better evaluate. 3: Otherwise, the remainder of the CT chest exam is unremarkable. Dictated by: Dictated on workstation # [id number] Dict: 06/30/231917 Trans: 06/30/231952 [id number] Interpreted by: LEONA SHELTON MD Electronically signed by: LEONA SHELTON MD 06/30/231952 Departure Impression Primary Impression: Chest wall pain Additional Impression: Shortness of breath Disposition: 01 HOME, SELF-CARE Condition: Stable Departure-Patient Inst. Decision time for Depature: 21:28 Referrals: [facility] [place] (PCP/Family) Primary Care Physician Patient Instructions: Chest Pain That Is Not Caused by the Heart (DC) Add. Discharge Instructions: This chest pain and shortness of breath may be related to a viral illness or your exposure to secondhand smoke. Call Dr. Novoa's office tomorrow to schedule a follow-up appointment. Make sure you take your blood pressure medication tonight. Return for any new, concerning, or worsening symptoms. All discharge instructions reviewed with patient and/or family. Voiced understanding. SHERRIE BLAKE APRN Jun 30, 2023 18:05
[2023-06-30 18:14] LABS: INR 1.1 (0.8-1.4)
[2023-06-30] MEDS ORDERED: NITROGLYCERIN 0.4 MG SL TABLETS BTL 25'S SL PRN (18:15)
--- NOTE | 2023-06-30 18:16 | Diagnostic Imaging Report ---
CLINICAL INDICATION: Patient with chest pain. EXAM: Portable chest x-ray, upright view. COMPARISON: Chest x-ray dated 06/19/2022. FINDINGS: Lungs/pleura: Lungs are clear. There is no pneumothorax. There is no pleural effusion. Mediastinum: Unremarkable. Pulmonary vasculature: Unremarkable. Heart: Unremarkable. Bones/extrathoracic soft tissue: Unremarkable. IMPRESSION: There is no radiographic evidence of acute cardiopulmonary process. Dictated by: Dictated on workstation # [id number]
[2023-06-30 18:19] LABS: ALBUMIN 4.2 GM/DL (3.2-4.5); CHLORIDE 108 MMOL/L (98-107); SODIUM 140 MMOL/L (135-145)
[2023-06-30 18:21] LABS: CALCIUM 9.2 MG/DL (8.5-10.1)
[2023-06-30 18:22] LABS: GLUCOSE 128 MG/DL (70-105)
[2023-06-30 18:23] LABS: BILIRUBIN,TOTAL 0.7 MG/DL (0.1-1.0); CARBON DIOXIDE 19 MMOL/L (21-32)
[2023-06-30 18:25] LABS: ALKALINE PHOSPHATASE 68 U/L (40-136); CREATININE SERUM 0.83 MG/DL (0.60-1.30); GFR ESTIMATED 85
[2023-06-30 18:26] LABS: BUN/CREATININE RATIO 23
[2023-06-30 18:28] LABS: ALANINE AMINOTRANSFERASE 14 U/L (0-55); MAGNESIUM 1.8 MG/DL (1.6-2.4)
[2023-06-30] MEDS ORDERED: NS IV 1000 ML 1,000 ML IV SCH (18:30)
[2023-06-30 18:35] LABS: BAND NEUTROPHILS 0 %; BASOPHILS % (MANUAL) 0 %; EOSINOPHILS % (MANUAL) 1 %; LYMPHOCYTES % (MANUAL) 7 %; MONOCYTES % (MANUAL) 0 %; NEUTROPHILS % (MANUAL) 92 %; RBC MORPH NORMAL
[2023-06-30] MEDS ORDERED: IOHEXOL 350 MG/ML 100 ML (OMNIPAQUE 350) VIAL IV ONE (19:00)
[2023-06-30] MEDS ORDERED: HOLD METFORMIN - RECEIVED CONTRAST 20 ML VIAL IV SCH (19:00)
[2023-06-30] MEDS ORDERED: NS 100 ML (IVPB) BAG IV ONE (19:00)
--- NOTE | 2023-06-30 19:23 | Diagnostic Imaging Report ---
CLINICAL INDICATION: Patient complains of chest pain x 4 days and increased pain with breathing. Rule out pulmonary aneurysm. EXAM: CT angiogram of the chest performed with 85 cc Omnipaque 350 IV contrast. Coronal and oblique MIP images of the vasculature were created to better evaluate anatomy. Auto Exposure Controls were utilized during the CT exam to meet ALARA standards for radiation dose reduction. COMPARISON: None. FINDINGS: There is no evidence of pulmonary embolism. There is no thoracic aortic dissection or aneurysm. There is slight volume loss involving the lungs and groundglass opacification throughout both lungs. There is increased groundglass opacification involving the posterior aspects of both lungs, likely related to atelectasis. Superimposed infiltrates in the areas of groundglass opacification cannot be completely excluded. There is no pleural effusion or pneumothorax. There is no mediastinal or axillary lymphadenopathy. Mediastinal structures and heart shows no significant abnormality. The visualized portions of the upper abdominal structures are unremarkable. Bone show no significant acute process. IMPRESSION: 1: There is no evidence of pulmonary embolism. There is no thoracic aortic aneurysm or dissection. 2: Slight low lung volumes are seen with diffuse groundglass opacification which may be related to atelectasis but subtle superimposed infiltrates cannot be complete excluded. Clinical correlation for infectious symptoms would better evaluate. 3: Otherwise, the remainder of the CT chest exam is unremarkable. Dictated by: Dictated on workstation # [id number]
[2023-06-30] MEDS ORDERED: dexAMETHasone INJ 10 MG/ML 1 ML VIAL IV ONE (21:30)
[2023-06-30 21:47] VITALS: BP 161/99
== END 2023-06-30 21:49 | disposition home or self-care (01) ==
LOC: EDUNIT# 17:33 → ER 17:35
DX: R07.89 Other chest pain (principal); R06.02 Shortness of breath; D72.829 Elevated white blood cell count, unspecified; Z20.822 Contact with and (suspected) exposure to COVID-19
CPT/HCPCS: 36415; 71045; 71275; 80053; 83735; 83880; 84484; 85007; 85025; 85027; 85379; 85610; 85730; 87636; 93005; 93041